=== PATIENT | male | born 1930 | race Caucasian/White ===

== ENCOUNTER 2017-11-15 09:41 | Inpatient (IN) | payer OTHER, MEDICARE ==
[~2017-11-15] VITALS: Ht 177.8 cm; Wt 75.8 kg
[~2017-11-15 09:41] MED LIST: ADVAIR 250-501 EACH INH; ADVAIR DISKUS 21 DSK INH; ALBUTEROL0.09 MG/A1 INH; ALENDRONATE SOD70 M2 PO; ALPRAZOLAM OD0.25 MG PO; ALPRAZOLAM0.25 M1 PO; ALPRAZOLAM0.5 MG PO; ANTIVERT 12.512.5 MG PO; ASPIRIN EC81 M1 PO; CIPRO500 M1 PO; COZAAR25 M1 PO; DILTIAZEM ER120 M2 PO; FLOMAX0.4 M1 PO; FLOVENT HFA12 G1 INH; GUAIFENESIN ER600 MG PO; LANTUS SOL100 UNIT/1 SC; LIPITOR20 M2 PO; METOPROLOL SUCC25 M1 PO; OMEPRAZOLE40 M1 PO; PREDNISONE5 M1 PO; PRESERVISION A1 EAC1 PO; SIMVASTATIN20 M2 PO; SIMVASTATIN20 MG PO; SPIRIVA18 MCG INH; TACLONEX OINTME60 GM TOP; TRANS SCOPE PAT1 PAT TOP
--- NOTE | 2017-11-15 09:44 | ED GENERAL ADULT ---
History of Present Illness General Chief Complaint: General Adult Stated Complaint: BIBA WEAKNESS,CONGESTION X 2 MONTHS Source: patient, old records, EMS Exam Limitations: no limitations Vital Signs & Intake/Output Vital Signs & Intake/Output Vital Signs Date Time Temp Pulse Resp B/P B/P Pulse O2 O2 Flow FiO2 Mean Ox Delivery Rate 11/15 1158 98.0 62 20 100/50 95 Room Air 11/15 1105 94 11/15 1054 94 Room Air 11/15 1015 94 11/15 0947 98.4 55 20 114/54 94 Room Air Allergies Coded Allergies: NO KNOWN ALLERGIES (11/13/13) Reconcile Medications Aspirin (Ecotrin*) 81 MG TABLET.DR 1 TAB PO DAILY HEART HEALTH (Reported) Atorvastatin Calcium (Lipitor) 20 MG TABLET 1 TAB PO DAILY heart Calcipotriene/Betamethasone (Taclonex Ointment) 60 GM OINT...G. 1 JANETTE TOP PSORIASIS (Reported) Diltiazem HCl (Cartia Xt) 120 MG CAP.ER.24H 1 CAP PO DAILY HEART (Reported) Fluticasone Propionate (Flovent Hfa) 12 GM AER.W.ADAP 2 PUF INH BID LUNG Fluticasone/Salmeterol (Advair 250-50 Diskus) 1 EACH BLST.W.DEV 1 PUF INH BID BREATHING PROBLEMS (Reported) Insulin Glargine,Hum.rec.anlog (Lantus Solostar) 100 UNIT/ML (3 ML) INSULN.PEN 20 UNIT SC QPM DIABETES (Reported) Losartan Potassium (Cozaar) 25 MG TABLET 1 TAB PO DAILY heart Meclizine HCl 12.5 MG TABLET 2 TAB PO Q8P PRN DIZZINESS (Reported) Metformin HCl 500 MG TABLET 1 TAB PO DAILY DIABETES (Reported) Metoprolol Succinate 25 MG TAB 1 TAB PO DAILY BP (Reported) Omeprazole 40 MG CAPSULE.DR 1 CAP PO DAILY GI (Reported) Simvastatin (Simvastatin*) 20 MG TABLET 1 TAB PO QPM CHOLESTEROL (Reported) Tamsulosin HCl (Flomax) 0.4 MG CAP.ER.24H 1 CAP PO QPM URINARY (Reported) Tiotropium [place] (Spiriva) 18 MCG CAP.W.DEV 1 CAP INH DAILY COPD (Reported) Vit C/E/Zn/Coppr/Lutein/Zeaxan (Preservision Areds 2 Softgel) 250-200-40 CAPSULE 1 CAP PO BID EYE (Reported) Triage Nurses Notes Reviewed? yes Onset: Gradual Duration: week(s): (2) Timing: recent history Injury Environment: home Severity: moderate, severe No Modifying Factors: none Associated Symptoms: cough, SOB, CLEAR SPUTUM HPI: This is an 86-year-old male presents to the ER for chief complaints of shortness of breath and cough for the past 2 weeks. He states 2 weeks ago he went to an urgent care and was pronounced urines. He has been using his inhaler at home without relief. Patient denies any high fever or chills. Denies any chest pain. He states he's been feeling weak secondary to the cough and shortness of breath. His sputum production is clear to white. No history of congestive heart failure. Past History Travel History Traveled to [place] past 21 day No Medical History Any Pertinent Medical History? see below for history Neurological: dizziness, vertigo EENT: cataracts, hearing loss, macular degeneration, sinusitis Cardiovascular: CAD, hypertension, hyperlipidemia, CARDIAC BYPASS Respiratory: bronchitis, COPD, PULMONARY NODULES Gastrointestinal: GERD Hepatic: NONE Renal: benign prost hyperplasia Musculoskeletal: POLYMYALGIA RHUEMATICA Psychiatric: anxiety Endocrine: diabetes Blood Disorders: NONE Cancer(s): NONE CHEMICAL DEPENDENCY NURSE/Reproductive: NONE History of MRSA: No History of VRE: No History of CDIFF: No Surgical History Surgical History: CABG, cholecystectomy, INGUINAL HERNIA REPAIR R LUNG MASS REMOVED-NONCA Psychosocial History Who do you live with Spouse Services at Home Home Health Aide, Nursing What is your primary language Belarusian Family History Family History, If Any: MOTHER (pancreatic cancer). SISTER (stomach cancer). FATHER (heart disease). Hx Contributory? No Review of Systems Review of Systems Constitutional: Denies: chills, fever. EENTM: Reports: no symptoms. Respiratory: Reports: cough, short of breath, sputum production (WHITE). Cardiovascular: Denies: chest pain, palpitations, peripheral edema. GI: Denies: abdominal pain. Genitourinary: Reports: no symptoms. Musculoskeletal: Reports: no symptoms. Skin: Reports: no symptoms. Neurological/Psychological: Reports: no symptoms. Hematologic/Endocrine: Denies: bruising, bleeding, polyuria, polydipsia. Immunologic/Allergic: Denies: splenectomy. All Other Systems: Reviewed and Negative Physical Exam Physical Exam General Appearance: well developed/nourished, alert, awake, anxious Head: atraumatic, normal appearance Eyes: Bilateral: normal appearance, PERRL. Ears, Nose, Throat: normal pharynx, hearing grossly normal Neck: normal inspection, supple, full range of motion Respiratory: decreased breath sounds, accessory muscle use, rhonchi, wheezing, respiratory distress Cardiovascular: regular rate/rhythm Peripheral Pulses: 2+ radial (R), 2+ radial (L) Gastrointestinal: normal bowel sounds, soft, non-tender Extremities: normal inspection, normal capillary refill, normal range of motion, no edema Neurologic/Psych: no motor/sensory deficits, awake, alert, oriented x 3 Skin: intact, normal color, warm/dry Core Measures ACS in differential dx? No CVA/TIA Diagnosis: No Sepsis Present: No Sepsis Focused Exam Completed? No Progress Differential Diagnoses I considered the following diagnoses in my evaluation of the patient: [ BRONCHITIS, PNEUMONIA, INFLUENZA, ASTHMA, CHF] Plan of Care: Orders Procedure Date/time Status Heart Healthy Diet 11/15 D Active ED Holding Orders 11/15 1306 Active Admit to inpatient 11/15 1306 Active Vital Signs 11/15 1306 Active Code Status 11/15 1306 Active LOWER RESPIRATORY CULTURE 11/15 0953 Complete RT ED ORDERS 11/15 0952 Active RAPID VIRAL INFLUENZA A 11/15 0952 Complete BLOOD CULTURE 11/15 0952 Active TROPONIN LEVEL 11/15 0952 Complete COMPREHENSIVE METABOLIC PANEL 11/15 0952 Complete CBC WITHOUT DIFFERENTIAL 11/15 0952 Complete B-TYPE NATRIURETIC PEP (BNP) 11/15 0952 Complete EKG 11/15 0944 Active Current Medications Sig/Chacho Start time Last Medication Dose Stop Time Status Admin Magnesium Sulfate 1 GM Q2H 11/15 1115 AC 11/15 (Mag Sulfate in D5) 11/15 1514 1215 Dextrose/Water 100 ML (D5W) Laboratory Tests 11/15/17 1045: Anion Gap 12, Estimated GFR > 60, BUN/Creatinine Ratio 21.3, Glucose 170 H, Calcium 8.6, Total Bilirubin 2.7 H, AST 18, ALT 39, Alkaline Phosphatase 106, Troponin I < 0.01, Bzz-C-Rovamuzphsi Pept 1030 H, Total Protein 5.8 L, Albumin 3.5, Globulin 2.3, Albumin/Globulin Ratio 1.5, CBC w Diff NO MAN DIFF REQ, RBC 4.49 L, MCV 83.2, MCH 27.7, RDW 15.5 H, MPV 9.1, Gran % 79.6 H, Lymphocytes % 12.4 L, Monocytes % 7.0, Eosinophils % 0.7, Basophils % 0.3, Absolute Granulocytes 10.5 H, Absolute Lymphocytes 1.6, Absolute Monocytes 0.9 H, Absolute Eosinophils 0.1, Absolute Basophils 0, PUBS MCHC 33.4 Microbiology 11/15 1045 BLOOD: Blood Culture - RECD 11/15 1035 BLOOD: Blood Culture - RECD 11/15 1015 LOWER RESP: Respiratory Culture - COMP 11/15 1015 LOWER RESP: Gram Stain - COMP 11/15 1012 NASOPHARYN: Influenza Virus A & B Rapid Smear - COMP Diagnostic Imaging: Viewed by Me: Radiology Read. Discussed w/RAD: Radiology Read. Initial ED EKG: NSR (56 BPM) Departure Departure Time of Disposition: 1307 Disposition: STILL A PATIENT Condition: Stable Clinical Impression Primary Impression: COPD (chronic obstructive pulmonary disease) Referrals: Epi CARRANZA,Carl Hudson (PCP/Family) Departure Forms: Customer Survey General Discharge Information Admission Note Spoke With: Magdiel CARRANZA,Cassi Crawford Critical Care Note Critical Care Note Critical Care Time: non-applicable
[2017-11-15] MEDS ORDERED: METFORMIN HCL500 M3 PO (09:53)
[2017-11-15] MEDS ORDERED: MECLIZINE HCL12.5 M1 PO (09:54)
[2017-11-15] MEDS ORDERED: CARTIA XT120 M1 PO (09:55)
--- NOTE | 2017-11-15 10:41 | RADIOLOGY REPORT ---
EXAMINATION: XR PORTABLE CHEST CLINICAL INFORMATION: Cough, shortness of breath COMPARISON: 02/15/2016 TECHNIQUE: Portable frontal view of the chest was obtained. FINDINGS: Lung volumes are symmetric. No focal consolidation is seen. Mild curvilinear bibasilar atelectasis/scarring is noted. Changes of upper lobe predominant emphysema are better demonstrated on prior CT. No evidence of pneumothorax, significant pleural effusion, or overt pulmonary edema. Cardiac size is within normal limits. Calcification is present at the aortic arch. Sternal wires are present. No acute osseous findings are seen. IMPRESSION: No acute findings identified.
[2017-11-15 11:14] LABS: ABSOLUTE BASOPHIL COUNT 0 /CUMM (0.0-0.2); ABSOLUTE EOSINOPHIL COUNT 0.1 /CUMM (0.0-0.7); ABSOLUTE GRANULOCYTE CT 10.5 /CUMM (1.4-6.5); ABSOLUTE LYMPH COUNT 1.6 /CUMM (1.2-3.4); ABSOLUTE MONOCYTE COUNT 0.9 /CUMM (0.10-0.60); BASOPHIL % 0.3 % (0.0-2.0); EOSINOPHIL % 0.7 % (0-5); GRANULOCYTE % 79.6 % (42.2-75.2); HEMATOCRIT 37.3 % (42-52); MEAN CORPUSCULAR HGB 27.7 PG (27.0-31.0); MEAN CORPUSCULAR HGB CONC 33.4 G/DL (33.0-37.0); MEAN CORPUSCULAR VOLUME 83.2 FL (80.0-94.0); MEAN PLATELET VOLUME 9.1 FL (7.4-10.4); PLATELET COUNT 146 /CUMM (130-400); RBC DISTRIBUTION WIDTH 15.5 % (11.5-14.5); RED BLOOD CELL CT 4.49 /CUMM (4.70-6.10); WHITE BLOOD CELL COUNT 13.2 /CUMM (4.8-10.8)
--- NOTE | 2017-11-15 13:20 | History & Physical ---
Eliazar CARRANZA,[facility] 11/15/17 1320: General Information and HPI MD Statement: I have seen and personally examined ANAY VILLALOBOS and documented this H&P. The patient is a 86 year old M who presented with a patient stated chief complaint of [bronchitis]. Source of Information: patient Exam Limitations: no limitations History of Present Illness: 86-year-old male past medical history of vertigo, cataracts, hearing loss, macular degeneration, sinusitis, CAD s/p CABG, hypertension, hyperlipidemia, bronchitis, COPD, gland nodules, GERD, BPH, anxiety, diabetes, polymyalgia rheumatica presentign for shortness of breath and cough since oct 25. States that he was seen by at a walk in clinic on nov 01 and was prescribed a prednisone taper that did not improve his symptoms. He continued to have productive cough with clear pleghm, sob, and worsening wheezing. He tried to get an appointment with the care facility pcp who cancelled the patients appointment and told him to take cough medicine which also did not improve his symptoms. He was supposed to be seen by Dr. Rich today, but came to the ED instead. Allergies/Medications Allergies: Coded Allergies: NO KNOWN ALLERGIES (11/13/13) Home Med list Aspirin (Ecotrin*) 81 MG TABLET.DR 1 TAB PO DAILY HEART HEALTH (Reported) Atorvastatin Calcium (Lipitor) 20 MG TABLET 1 TAB PO DAILY heart Calcipotriene/Betamethasone (Taclonex Ointment) 60 GM OINT...G. 1 JANETTE TOP PSORIASIS (Reported) Diltiazem HCl (Cartia Xt) 120 MG CAP.ER.24H 1 CAP PO DAILY HEART (Reported) Fluticasone Propionate (Flovent Hfa) 12 GM AER.W.ADAP 2 PUF INH BID LUNG Fluticasone/Salmeterol (Advair 250-50 Diskus) 1 EACH BLST.W.DEV 1 PUF INH BID BREATHING PROBLEMS (Reported) Insulin Glargine,Hum.rec.anlog (Lantus Solostar) 100 UNIT/ML (3 ML) INSULN.PEN 20 UNIT SC QPM DIABETES (Reported) Losartan Potassium (Cozaar) 25 MG TABLET 1 TAB PO DAILY heart Meclizine HCl 12.5 MG TABLET 2 TAB PO Q8P PRN DIZZINESS (Reported) Metformin HCl 500 MG TABLET 1 TAB PO DAILY DIABETES (Reported) Metoprolol Succinate 25 MG TAB 1 TAB PO DAILY BP (Reported) Omeprazole 40 MG CAPSULE.DR 1 CAP PO DAILY GI (Reported) Simvastatin (Simvastatin*) 20 MG TABLET 1 TAB PO QPM CHOLESTEROL (Reported) Tamsulosin HCl (Flomax) 0.4 MG CAP.ER.24H 1 CAP PO QPM URINARY (Reported) Tiotropium [place] (Spiriva) 18 MCG CAP.W.DEV 1 CAP INH DAILY COPD (Reported) Vit C/E/Zn/Coppr/Lutein/Zeaxan (Preservision Areds 2 Softgel) 250-200-40 CAPSULE 1 CAP PO BID EYE (Reported) Past History Travel History Traveled to [place] past 21 day No Medical History Neurological: dizziness, vertigo EENT: cataracts, hearing loss, macular degeneration, sinusitis Cardiovascular: CAD, hypertension, hyperlipidemia, CARDIAC BYPASS Respiratory: bronchitis, COPD, PULMONARY NODULES Gastrointestinal: GERD Hepatic: NONE Renal: benign prost hyperplasia Musculoskeletal: POLYMYALGIA RHUEMATICA Psychiatric: anxiety Endocrine: diabetes Blood Disorders: NONE Cancer(s): NONE 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 SISTER (stomach cancer). FATHER (heart disease). Psychosocial History Services at Home: Home Health Aide, Nursing ETOH Use: denies use Illicit Drug Use: denies illicit drug use Review of Systems Review of Systems Constitutional: Reports: see HPI. Cardiovascular: Reports: no symptoms. Respiratory: Reports: cough, short of breath, sputum production, wheezing. GI: Reports: no symptoms. Genitourinary: Reports: no symptoms. Exam & Diagnostic Data Last 24 Hrs of Vital Signs/I&O Vital Signs Date Time Temp Pulse Resp B/P B/P Pulse O2 O2 Flow FiO2 Mean Ox Delivery Rate 11/15 2204 97.2 60 20 122/54 94 Room Air 11/15 2151 128/80 11/15 2150 Room Air 11/15 2120 94 Room Air 11/15 2022 97.6 89 18 129/89 96 Room Air 11/15 2021 99 20 129/89 11/15 1944 98.0 60 16 120/58 96 Nasal 1.0L Cannula 01/10 1944 98.0 60 16 120/58 96 Nasal 1.0L Cannula 11/15 1630 97.6 61 18 141/63 97 Nasal 2.0L Cannula 11/15 1628 97.6 61 17 141/63 97 Nasal 2.0L Cannula 11/15 1412 97.5 60 20 122/60 96 Nasal 2.0L Cannula 11/15 1158 98.0 62 20 100/50 95 Room Air 11/15 1105 94 11/15 1054 94 Room Air 11/15 1015 94 11/15 0947 98.4 55 20 114/54 94 Room Air Intake & Output 11/15 1600 11/15 0800 11/15 0000 Intake Total Output Total Balance Patient 165 lb Weight Weight Reported by Patient Measurement Method Physical Exam General Appearance Alert, Oriented X3, Cooperative, Mild Distress Skin Temp/Moisture Exam: Warm/Dry HEENT no JVD Cardiovascular Regular Rate, Normal S1, Normal S2 Lungs diffuse wheezing and rhonchi. wheezing can be heard across room. Abdomen Normal Bowel Sounds, Soft, No Tenderness Extremities no pedal edema Assessment/Plan Assessment: 86-year-old male past medical history of vertigo, cataracts, hearing loss, macular degeneration, sinusitis, CAD s/p CABG, hypertension, hyperlipidemia, bronchitis, COPD, gland nodules, GERD, BPH, anxiety, diabetes, polymyalgia rheumatica presentign for shortness of breath and cough since oct 25 presenting for COPD exascerbation #SOB most likely due to COPD Initial vital signs: T 98.0, heart rate 62, respiratory rate 20, BP 100/50, 95 room air WBC 13.2 trop <.01 ProBNP 1030 Negative flu Echo 2016: LVEF 45-50%, anteroseptal wall hypokinesis Chest x-ray negative -trc, nebs, IV solumedrol, symbicort, azithromycin, sputum culture, mucinex, -f/u pulm recommendations #? hx of afib EKG showed afib however exam revealed RRR Pt states he saw sole cutter y-day (Dr. Des Veloz) and said his ekg was fine -contact cardiology regarding patients health -cont dilt if instructed by cards #elevated tbili T bili 2.7 normal lfts -cont to monitor #diabetes -novolog sliding scale #hx of cad -cont aspirin, atorvastatin, metoprolol #htn -losaratan #gerd -omeprazole #bph -flomax #vertigo -cont meclizine #dvt prophylaxis lovenox #full code As Ranked By This Provider Problem List: 1. COPD (chronic obstructive pulmonary disease) Core Measures/Misc (07/23) Acute Coronary Syndrome ACS Diagnosis: No Congestive Heart Failure Congestive Heart Failure Diagnosis No Cerebrovascular Accident CVA/TIA Diagnosis: No VTE (View Protocol) VTE Risk Factors Acute Medical Illness No Mechanical VTE Prophylaxis d/t Other No VTE Pharm Prophylaxis d/t NA PharmProphylax ordered Sepsis (View protocol) Sepsis Present: No Susy Sylvester 11/15/17 1515: Attending MD Review Statement Attending Statement Attending MD Statement: examined this patient, discuss w/resident/PA/SAWYER CORK SLABS, agreed w/resident/PA/SAWYER CORK SLABS, discussed with family, reviewed EMR data (avail), discussed with nursing, discussed with case mgmt, reviewed images, amended to note Attending Assessment/Plan: 86 o/m with pmh of COPD/CAD s/p CABG in past/severe emphysema/SVT/ Polymyalgia rhematica/DM/BPH/HTN came with shortness of breath on rest and improved with steorids in ER. Chest xray with emphsematos changes and atelectasis. Patient is on oxygen supplementaton. Patient is being admitted for COPD exacebration. Patient is on iv steorids, bronchodilators, antibicotics, consult pulmoanry Dr Rich. Check serial cardiac enzymes. RISS and titrate insulin as needed. gi/dvt prophyalxis. Lluvia Mares 11/15/17 1614: Resident Review Statement Resident Statement: examined this patient, discussed with campus interviews intern, agreed with campus interviews intern, reviewed EMR data (avail), discussed with nursing, reviewed images Other Findings: is an 86 yo man a resident of [facility] with PMHx. of COPD not on home O2, hypertension, BPH, pulmonary nodules, hyperlipidemia, coronary artery disease with bypass surgery 20 years ago who presented to the emergency department with a c/o SOB. Pateint had bronchitis about 2 weeks ago, he went to a walk in clinic and treated with antibiotic and a taper dose of prednisone, his symptoms of productive of clear phlegm, SOB on exertion and wheezing never improved, he was supposed to be seen by his community relations representative ( today) BUT his visiting nurse told him that he needs to go to ED for more evaluation. At ED patient was initially at RA with O2 95%, then on 2L O2 with a sat of 96%, other vitals is stable On examiantion: he looks in mild distress, Lung: whidspread rhonchi and expiratory wheezing, Heart: regular rhythm, no murmur, pulse intact, no edema Labs: CXR:no acute findings identified. 1. COPD exacerbation: TRC. Symbicort and ipratropium. Zithromax for its anti- inflammatory properties. Sputum culture. Mucinex. 2. Hx. of SVT, EKG at ED showed A.fib, on examination he has regular pulse: will check another EKG at am, if it showed A.fib will place a cardiology consult with his sole cutter Dr. Veloz (His CHADsVAC is >2) 3. Fatigue:related most likely to the current medical illness 4. Polymyalgia rheumatica per patient: 5. Diabetes by history: Will continue insulin and hold PO hypoglycemic medication Continue other medications. Full code Heart healthy diet. Lovenox for DVT prophylaxis.
[2017-11-15 16:30] VITALS: BP 141/63
--- NOTE | 2017-11-15 19:22 | Cons- Pulmonary ---
General Information and HPI Consulting Request Date of Consult: 11/15/17 Requested By: ED History of Present Illness: is an 86 yo man a resident of [facility] with PMHx. of COPD not on home O2, hypertension, BPH, pulmonary nodules, hyperlipidemia, coronary artery disease with bypass surgery 20 years ago who presented to the emergency department with a c/o SOB. Pateint had bronchitis about 2 weeks ago, he went to a walk in clinic and treated with antibiotic and a taper dose of prednisone, his symptoms of productive of clear phlegm, SOB on exertion and wheezing never improved, he was supposed to be seen by me today, BUT his visiting nurse told him that he needs to go to ED for more evaluation. At ED patient was initially at RA with O2 95%, then on 2L O2 with a sat of 96%, other vitals is stable He has very severe copd with emphysema with low FEV1 he has PMR and hence immunosuppresed He does use a humidifier Allergies/Medications Allergies: Coded Allergies: NO KNOWN ALLERGIES (11/13/13) Home Med List: Aspirin (Ecotrin*) 81 MG TABLET.DR 1 TAB PO DAILY HEART HEALTH (Reported) Atorvastatin Calcium (Lipitor) 20 MG TABLET 1 TAB PO DAILY heart Calcipotriene/Betamethasone (Taclonex Ointment) 60 GM OINT...G. 1 JANETTE TOP PSORIASIS (Reported) Diltiazem HCl (Cartia Xt) 120 MG CAP.ER.24H 1 CAP PO DAILY HEART (Reported) Fluticasone Propionate (Flovent Hfa) 12 GM AER.W.ADAP 2 PUF INH BID LUNG Fluticasone/Salmeterol (Advair 250-50 Diskus) 1 EACH BLST.W.DEV 1 PUF INH BID BREATHING PROBLEMS (Reported) Insulin Glargine,Hum.rec.anlog (Lantus Solostar) 100 UNIT/ML (3 ML) INSULN.PEN 20 UNIT SC QPM DIABETES (Reported) Losartan Potassium (Cozaar) 25 MG TABLET 1 TAB PO DAILY heart Meclizine HCl 12.5 MG TABLET 2 TAB PO Q8P PRN DIZZINESS (Reported) Metformin HCl 500 MG TABLET 1 TAB PO DAILY DIABETES (Reported) Metoprolol Succinate 25 MG TAB 1 TAB PO DAILY BP (Reported) Omeprazole 40 MG CAPSULE.DR 1 CAP PO DAILY GI (Reported) Simvastatin (Simvastatin*) 20 MG TABLET 1 TAB PO QPM CHOLESTEROL (Reported) Tamsulosin HCl (Flomax) 0.4 MG CAP.ER.24H 1 CAP PO QPM URINARY (Reported) Tiotropium [place] (Spiriva) 18 MCG CAP.W.DEV 1 CAP INH DAILY COPD (Reported) Vit C/E/Zn/Coppr/Lutein/Zeaxan (Preservision Areds 2 Softgel) 250-200-40 CAPSULE 1 CAP PO BID EYE (Reported) Review of Systems Review of Systems Constitutional: Denies: see HPI. 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 SISTER (stomach cancer). FATHER (heart disease). Psychosocial History Services at Home: Home Health Aide, Nursing ETOH Use: denies use Illicit Drug Use: denies illicit drug use Exam & Diagnostic Data Last 24 Hrs of Vital Signs/I&O Vital Signs Date Time Temp Pulse Resp B/P B/P Pulse O2 O2 Flow FiO2 Mean Ox Delivery Rate 11/15 1630 97.6 61 18 141/63 97 Nasal 2.0L Cannula 11/15 1628 97.6 61 17 141/63 97 Nasal 2.0L Cannula 11/15 1412 97.5 60 20 122/60 96 Nasal 2.0L Cannula 11/15 1158 98.0 62 20 100/50 95 Room Air 11/15 1105 94 11/15 1054 94 Room Air 11/15 1015 94 11/15 0947 98.4 55 20 114/54 94 Room Air Intake & Output 11/15 1600 11/15 0800 11/15 0000 Intake Total Output Total Balance Patient 165 lb Weight Weight Reported by Patient Measurement Method Last 48 Hrs of Labs/Jc: Laboratory Tests 11/15/17 1045: Anion Gap 12, Estimated GFR > 60, BUN/Creatinine Ratio 21.3, Glucose 170 H, Calcium 8.6, Total Bilirubin 2.7 H, AST 18, ALT 39, Alkaline Phosphatase 106, Troponin I < 0.01, Mlg-F-Tpjawbhsdjn Pept 1030 H, Total Protein 5.8 L, Albumin 3.5, Globulin 2.3, Albumin/Globulin Ratio 1.5, CBC w Diff NO MAN DIFF REQ, RBC 4.49 L, MCV 83.2, MCH 27.7, RDW 15.5 H, MPV 9.1, Gran % 79.6 H, Lymphocytes % 12.4 L, Monocytes % 7.0, Eosinophils % 0.7, Basophils % 0.3, Absolute Granulocytes 10.5 H, Absolute Lymphocytes 1.6, Absolute Monocytes 0.9 H, Absolute Eosinophils 0.1, Absolute Basophils 0, PUBS MCHC 33.4 11/15/17 0600: CBC w Diff Cancelled, WBC Cancelled, RBC Cancelled, Hgb Cancelled, Hct Cancelled , MCV Cancelled, MCH Cancelled, RDW Cancelled, Plt Count Cancelled, MPV Cancelled, PUBS MCHC Cancelled Microbiology 11/15 1015 LOWER RESP: Respiratory Culture - COMP 11/15 1015 LOWER RESP: Gram Stain - COMP 11/15 1012 NASOPHARYN: Influenza Virus A & B Rapid Smear - COMP Cxr nil acute Assessment/Plan Impression/Plan: On examiantion: he looks in mild distress, Lung: whidspread rhonchi and expiratory wheezing, Heart: regular rhythm, no murmur, pulse intact, no edema IMPRESSION This is a gentleman with history of more than [id number] smoking quit many years ago, very severe emphysema noted in his previous CAT scan, mild bronchitis on and off with no previous intubation, coronary artery disease with previous bypass surgery, polymyalgia rheumatica on chronic prednisone therapy hence immunosuppressed, diabetes, hyperlipidemia, history of BPH, previous history of lung nodules, now comes with * Very severe emphysema radiologically with mod performance status with acute copd exacerbation despite out pt measures, with mild hypoxia and productive sputum * Previous history of lung nodule probably rounded atx and ct improved since 2013 and hence unlikely malignancy, no ct needed for now due to his very advanced emphysema * Polymyalgia rheumatica on chronic steroids. He says his pain is resolved since she's been on steroids. Hence patient is immunosuppressed * Stable Coronary artery disease in the past status post CABG, irregular rhythm with previous supraventricular tachycardia * Diabetes, BPH, HTN REC IV steroids 60 bid and sub change to 60 qd Nebs atc Rpt sputum culture IV ceftriaxone for now and dc azithro cont to monitor his rhythm Avoid high dose betablockers Will follow closely Consult Acknowledgment - Thank you for your consult request.
[2017-11-15 19:45] VITALS: BP 120/58
[2017-11-15 22:05] VITALS: BP 122/54
[2017-11-16 07:17] VITALS: BP 118/52
--- NOTE | 2017-11-16 10:49 | PN- Pulmonary ---
Subjective HPI/Critical Care Issues: Doing well Stable No new issues Objective Current Medications: Current Medications Sig/Chacho Start time Last Medication Dose Route Stop Time Status Admin Acetaminophen 650 MG Q6P PRN 11/15 1445 AC PO Acetaminophen 1,000 MG Q6P PRN 11/15 1445 AC IV Albuterol Sulfate 3 ML TID 11/15 2200 AC 11/16 INH 0822 Albuterol Sulfate 3 ML ONCE ONE 11/15 1100 DC 11/15 INH 11/15 1101 1105 Aspirin Buffered 81 MG DAILY 11/16 1000 AC 11/16 PO 0911 Atorvastatin Calcium 20 MG 1700 11/16 1700 AC PO Azithromycin 500 MG DAILY 11/16 1000 CAN Sodium Chloride 250 ML IV Azithromycin 500 MG ONCE ONE 11/15 1300 DC 11/15 PO 11/15 1301 1305 Budesonide/ 2 PUF BID 11/15 2200 AC 11/16 Formoterol Fumarate INH 0912 Budesonide/ 2 PUF BID 11/15 2200 CAN Formoterol Fumarate INH Diltiazem HCl 120 MG DAILY 11/15 1656 AC 11/16 PO 0911 Enoxaparin Sodium 40 MG DAILY 11/16 1000 AC 11/16 SC 0911 Guaifenesin 600 MG Q12 11/15 1815 AC 11/16 PO 0911 Insulin Aspart 0 TIDAC 11/15 1700 AC 11/16 SC 0910 Insulin Detemir 12 UNITS DAILY 11/16 1000 CAN SC Ipratropium [place] 2.5 ML DAILY 11/16 1000 CAN INH Losartan Potassium 25 MG DAILY 11/16 1000 AC 11/16 PO 0911 Magnesium Sulfate 1 GM Q2H 11/15 1115 DC 11/15 Dextrose/Water 100 ML IV 11/15 1514 1215 Methylprednisolone 60 MG Q12 11/16 2199 AC IV Methylprednisolone 20 MG ONCE ONE 11/16 0945 DC IV 11/16 0946 Methylprednisolone 40 MG Q12 11/15 2200 DC 11/16 IV 0910 Methylprednisolone 0 .STK-MED ONE 11/15 1055 DC .ROUTE Metoprolol Succinate 25 MG DAILY 11/15 1655 AC 11/16 PO 0911 Omeprazole 40 MG DAILY AC 11/16 0700 AC 11/16 PO 0530 Tamsulosin HCl 0.4 MG QPM 11/15 2200 AC 11/15 PO 2152 Tiotropium [place] 1 PUF DAILY 11/16 1000 CAN INH Tiotropium [place] 1 PUF DAILY 11/15 2215 AC 11/16 INH 0912 Vital Signs & I&O Last 24 Hrs of Vitals and I&O: Vital Signs Date Time Temp Pulse Resp B/P B/P Pulse O2 O2 Flow FiO2 Mean Ox Delivery Rate 11/16 0911 78 128/80 11/16 0826 92 Room Air 11/16 0800 94 Room Air 11/16 0717 97.8 60 20 118/52 91 11/15 2205 97.2 60 20 122/54 94 Room Air 11/15 2152 128/80 11/15 2151 Room Air 11/15 2121 94 Room Air 11/15 2022 97.6 89 18 129/89 96 Room Air 11/15 2021 99 20 129/89 11/15 1945 98.0 60 16 120/58 96 Nasal 1.0L Cannula 11/15 1944 98.0 60 16 120/58 96 Nasal 1.0L Cannula 11/15 1630 97.6 61 18 141/63 97 Nasal 2.0L Cannula 11/15 1628 97.6 61 17 141/63 97 Nasal 2.0L Cannula 11/15 1412 97.5 60 20 122/60 96 Nasal 2.0L Cannula 11/15 1158 98.0 62 20 100/50 95 Room Air 11/15 1105 94 11/15 1054 94 Room Air Intake & Output 11/16 1600 11/16 0800 11/16 0000 Intake Total 240 120 Output Total 375 Balance -135 120 Intake, Oral 240 120 Output, Urine 375 Patient 167 lb Weight Weight Bed scale Measurement Method Impression/Plan Impression/Plan Impression/Plan: On examiantion: he looks in mild distress, Lung: whidspread rhonchi and expiratory wheezing, Heart: regular rhythm, no murmur, pulse intact, no edema IMPRESSION This is a gentleman with history of more than [id number] smoking quit many years ago, very severe emphysema noted in his previous CAT scan, mild bronchitis on and off with no previous intubation, coronary artery disease with previous bypass surgery, polymyalgia rheumatica on chronic prednisone therapy hence immunosuppressed, diabetes, hyperlipidemia, history of BPH, previous history of lung nodules, now comes with * Very severe emphysema radiologically with mod performance status with acute copd exacerbation despite out pt measures, with mild hypoxia and productive sputum * Previous history of lung nodule probably rounded atx and ct improved since 2013 and hence unlikely malignancy, no ct needed for now due to his very advanced emphysema * Polymyalgia rheumatica on chronic steroids. He says his pain is resolved since she's been on steroids. Hence patient is immunosuppressed * Stable Coronary artery disease in the past status post CABG, irregular rhythm with previous supraventricular tachycardia * Diabetes, BPH, HTN REC Much improved Po prednisone taper in few days Nebs atc Change to po abx in am Avoid high dose betablockers Will follow closely
--- NOTE | 2017-11-16 11:15 | PN- Housestaff ---
Subjective Follow-up For: SOB/COPD exascerbation Subjective: States he is not doing too well. Was not able to sleep last night. Complains of congestion. States still SOB but also states he is always SOB. States his SOB is at baseline. Review of Systems Constitutional: Reports: see HPI (insomnia). Cardiovascular: Reports: no symptoms. Respiratory: Reports: see HPI (congestion), short of breath. Gastrointestinal: Reports: no symptoms. Genitourinary: Reports: no symptoms. Objective Last 24 Hrs of Vital Signs/I&O Vital Signs Date Time Temp Pulse Resp B/P B/P Pulse O2 O2 Flow FiO2 Mean Ox Delivery Rate 11/16 1339 96.5 58 19 114/50 94 Room Air 11/16 09 78 128/80 11/16 0826 92 Room Air 11/16 08 94 Room Air 11/16 0717 97.8 60 20 118/52 91 11/15 2204 97.2 60 20 122/54 94 Room Air 11/15 215 128/80 11/15 215 Room Air 11/15 2121 94 Room Air 11/15 2022 97.6 89 18 129/89 96 Room Air 11/15 2021 99 20 129/89 11/15 1944 98.0 60 16 120/58 96 Nasal 1.0L Cannula 11/15 1943 98.0 60 16 120/58 96 Nasal 1.0L Cannula Intake & Output 11/16 1600 11/16 0800 11/16 0000 Intake Total 940 240 120 Output Total 550 375 Balance 390 -135 120 Intake, IV 40 Intake, Oral 900 240 120 Number 0 Bowel Movements Output, Urine 550 375 Patient 167 lb Weight Weight Bed scale Measurement Method Physical Exam General Appearance: Alert, Oriented X3, Cooperative Skin Temp/Moisture Exam: Warm/Dry Cardiovascular: Regular Rate, Normal S1, Normal S2 Lungs: diffuse exp wheezing and rhonchi Abdomen: Normal Bowel Sounds, Soft, No Tenderness Extremities: no leg edema Current Medications: Current Medications Sig/Chacho Start time Last Medication Dose Route Stop Time Status Admin Acetaminophen 650 MG Q6P PRN 11/15 1445 AC PO Acetaminophen 1,000 MG Q6P PRN 11/15 1445 AC IV Albuterol Sulfate 3 ML TID 11/15 2200 AC 11/16 INH 1323 Aspirin Buffered 81 MG DAILY 11/16 1000 AC 11/16 PO 0911 Atorvastatin Calcium 20 MG 1700 11/16 1700 AC 11/16 PO 1608 Azithromycin 500 MG DAILY 11/16 1000 CAN Sodium Chloride 250 ML IV Budesonide/ 2 PUF BID 11/15 2200 AC 11/16 Formoterol Fumarate INH 0912 Budesonide/ 2 PUF BID 11/15 2200 CAN Formoterol Fumarate INH Ceftriaxone Sodium 1,000 MG DAILY 11/16 1500 AC 11/16 IV 1608 Diltiazem HCl 120 MG DAILY 11/15 1656 AC 11/16 PO 0911 Enoxaparin Sodium 40 MG DAILY 11/16 1000 AC 11/16 SC 0911 Guaifenesin 600 MG Q12 11/15 1815 AC 11/16 PO 0911 Insulin Aspart 0 TIDAC 11/15 1700 AC 11/16 SC 1724 Insulin Detemir 12 UNITS DAILY 11/16 1000 CAN SC Ipratropium [place] 2.5 ML DAILY 11/16 1000 CAN INH Losartan Potassium 25 MG DAILY 11/16 1000 AC 11/16 PO 0911 Methylprednisolone 60 MG Q12 11/16 2200 AC IV Methylprednisolone 20 MG ONCE ONE 11/16 0945 DC 11/16 IV 11/16 0946 1123 Methylprednisolone 40 MG Q12 11/15 2200 DC 11/16 IV 0910 Metoprolol Succinate 25 MG DAILY 11/15 1655 AC 11/16 PO 0911 Omeprazole 40 MG DAILY AC 11/16 0700 AC 11/16 PO 0530 Tamsulosin HCl 0.4 MG QPM 11/15 2200 AC 11/15 PO 2152 Tiotropium [place] 1 PUF DAILY 11/16 1000 CAN INH Tiotropium [place] 1 PUF DAILY 11/15 2215 AC 11/16 INH 0912 Last 24 Hrs of Lab/Jc Results Last 24 Hrs of Labs/Mics: Laboratory Tests 11/16/17 0622: Anion Gap 10, Estimated GFR > 60, BUN/Creatinine Ratio 28.6 H Assessment/Plan Assessment: 86-year-old male past medical history of vertigo, cataracts, hearing loss, macular degeneration, sinusitis, CAD s/p CABG, hypertension, hyperlipidemia, bronchitis, COPD, gland nodules, GERD, BPH, anxiety, diabetes, polymyalgia rheumatica presentign for shortness of breath and cough since oct 25 presenting for COPD exascerbation #SOB most likely due to COPD Initial vital signs: T 98.0, heart rate 62, respiratory rate 20, BP 100/50, 95 room air WBC 13.2 trop <.01 ProBNP 1030 Negative flu Echo 2016: LVEF 45-50%, anteroseptal wall hypokinesis Chest x-ray negative -trc, nebs, IV solumedrol, symbicort,sputum culture, mucinex, -dc azithromycin, start IV ceftriaxone -switch to po abx tomorrow -start prednisone taper tomorrow #? hx of afib EKG showed afib however exam revealed RRR Pt states he saw sample grader y-day (Dr. Des Veloz) and said his ekg was fine Cont diltiazem -contact cardiology regarding patients health #elevated tbili T bili 2.7 normal lfts -cont to monitor #diabetes -novolog sliding scale #hx of cad -cont aspirin, atorvastatin, metoprolol #htn -losaratan #gerd -omeprazole #bph -flomax #vertigo -cont meclizine #dvt prophylaxis lovenox #full code Problem List: 1. COPD (chronic obstructive pulmonary disease) Pain Ratin Pain Location: none Pain Goal: Pain 4 or less Pain Plan: pain pathway Tomorrow's Labs & Rationales: cbc bep
--- NOTE | 2017-11-16 13:12 | PN- Att Addend ---
Attending Addendum Attending Brief Note Patient seen and examined, overall feeling better. Not requiring any oxygen. Breathing has improved. Vital Signs Date Time Temp Pulse Resp B/P B/P Pulse O2 O2 Flow FiO2 Mean Ox Delivery Rate 11/16 0911 78 128/80 11/16 0826 92 Room Air 11/16 0800 94 Room Air 11/16 0717 97.8 60 20 118/52 91 11/15 2205 97.2 60 20 122/54 94 Room Air 11/15 2152 128/80 11/15 215 Room Air 11/15 2121 94 Room Air 11/15 2022 97.6 89 18 129/89 96 Room Air 11/15 2021 99 20 129/89 11/15 194 98.0 60 16 120/58 96 Nasal 1.0L Cannula 11/15 194 98.0 60 16 120/58 96 Nasal 1.0L Cannula 11/15 1630 97.6 61 18 141/63 97 Nasal 2.0L Cannula 11/15 1628 97.6 61 17 141/63 97 Nasal 2.0L Cannula 11/15 1412 97.5 60 20 122/60 96 Nasal 2.0L Cannula on exam; aox3, nad. cv; s1,s2, rrr resp; clear abd; soft, nt, bs+. ext; no edema. Laboratory Tests 11/16 621 Chemistry Sodium (137 - 145 mmol/L) 140 Potassium (3.5 - 5.1 mmol/L) 4.2 Chloride (98 - 107 mmol/L) 101 Carbon Dioxide (22 - 30 mmol/L) 28 Anion Gap (5 - 16) 10 BUN (9 - 20 mg/dL) 20 Creatinine (0.7 - 1.2 mg/dL) 0.7 Estimated GFR (>60 ml/min) > 60 BUN/Creatinine Ratio (7 - 25 %) 28.6 H A/P; 86 y/o M with pmh sig for vertigo, cataracts, hearing loss, macular degeneration, sinusitis, CAD s/p CABG, hypertension, hyperlipidemia, bronchitis , COPD, GERD, BPH, anxiety, diabetes, polymyalgia rheumatica admitted with acute COPD exacerbation/acute bronchitis. Continue IV steroids today and switch to oral tomorrow. Please clarify with pulmonology about ceftriaxone. Can likely switch to oral antibiotic in the morning. We'll get PT evaluation. Continue all other current medications. DVT px; Lovenox. Likely DC in am.
[2017-11-16 13:39] VITALS: BP 114/50
[2017-11-16 21:46] VITALS: BP 100/52
[2017-11-17 06:28] VITALS: BP 138/78
--- NOTE | 2017-11-17 08:49 | PN- Housestaff ---
Eliazar CARRANZA,[facility] 11/17/17 0849: Subjective Follow-up For: COPD Subjective: Patient feels riled up and confused. Unable to sleep. Thinks it is due to the steroids. States breathing is better today. Review of Systems Constitutional: Reports: see HPI (riled and confused). Cardiovascular: Reports: no symptoms. Respiratory: Reports: no symptoms. Gastrointestinal: Reports: no symptoms. Genitourinary: Reports: no symptoms. Musculoskeletal: Reports: no symptoms. Neurological/Psychological: Reports: see HPI (insomnia). Objective Last 24 Hrs of Vital Signs/I&O Vital Signs Date Time Temp Pulse Resp B/P B/P Pulse O2 O2 Flow FiO2 Mean Ox Delivery Rate 11/17 1230 97.9 62 22 122/60 11/17 1035 62 122/60 11/17 0910 94 Room Air 11/17 0628 97.9 84 22 138/78 94 Room Air Physical Exam General Appearance: Alert, Moderate Distress, Patient appears anxious and confused Skin Temp/Moisture Exam: Warm/Dry Cardiovascular: Regular Rate, Normal S1, Normal S2 Lungs: inspiratory crackles Abdomen: Normal Bowel Sounds, Soft, No Hepatospenomegaly Extremities: 2+ radial pulses Current Medications: Current Medications Sig/Chacho Start time Last Medication Dose Route Stop Time Status Admin Acetaminophen 650 MG Q6P PRN 11/15 1445 DCD PO Acetaminophen 1,000 MG Q6P PRN 11/15 1445 DCD IV Albuterol Sulfate 3 ML TID 11/15 2200 DCD 11/17 INH 0910 Aspirin Buffered 81 MG DAILY 11/16 1000 DCD 11/17 PO 1033 Atorvastatin Calcium 20 MG 1700 11/16 1700 DCD 11/16 PO 1608 Budesonide/ 2 PUF BID 11/15 2200 DCD 11/17 Formoterol Fumarate INH 1033 Ceftriaxone Sodium 1,000 MG DAILY 11/16 1500 DC 11/16 IV 1608 Cefuroxime Sodium 250 MG Q12 11/17 1000 DCD 11/17 PO 1035 Diltiazem HCl 120 MG DAILY 11/15 1656 DCD 11/17 PO 1035 Enoxaparin Sodium 40 MG DAILY 11/16 1000 DCD 11/17 SC 1033 Guaifenesin 600 MG Q12 11/15 1815 DCD 11/17 PO 1033 Insulin Aspart 0 TIDAC 11/15 1700 DCD 11/17 SC 1230 Losartan Potassium 25 MG DAILY 11/16 1000 DCD 11/17 PO 1035 Methylprednisolone 60 MG Q12 11/16 2200 DC 11/16 IV 2039 Metoprolol Succinate 25 MG DAILY 11/15 1655 DCD 11/17 PO 1037 Omeprazole 40 MG DAILY AC 11/16 0700 DCD 11/17 PO 0458 Prednisone 40 MG ONCE ONE 11/17 1115 DC 11/17 PO 11/17 1116 1225 Tamsulosin HCl 0.4 MG QPM 11/15 2200 DCD 11/15 PO 2152 Tiotropium [place] 1 PUF DAILY 11/15 2215 DCD 11/17 INH 1029 Last 24 Hrs of Lab/Jc Results Last 24 Hrs of Labs/Mics: Laboratory Tests 11/17/17 0747: Anion Gap 17 H, Estimated GFR > 60, BUN/Creatinine Ratio 26.3 H, CBC w Diff MAN DIFF ORDERED, RBC 4.66 L, MCV 84.4, MCH 27.7, RDW 15.7 H, MPV 9.1, Gran % 94.3 H, Lymphocytes % 2.6 L, Monocytes % 3.1, Eosinophils % 0, Basophils % 0, Absolute Granulocytes 20.6 H, Absolute Lymphocytes 0.6 L, Absolute Monocytes 0.7 H, Absolute Eosinophils 0, Absolute Basophils 0, Platelet Estimate ADEQUATE , Poikilocytosis 2+, Anisocytosis 1+, PUBS MCHC 32.8 L Assessment/Plan Assessment: 86-year-old male past medical history of vertigo, cataracts, hearing loss, macular degeneration, sinusitis, CAD s/p CABG, hypertension, hyperlipidemia, bronchitis, COPD, gland nodules, GERD, BPH, anxiety, diabetes, polymyalgia rheumatica presentign for shortness of breath and cough since oct 25 presenting for COPD exascerbation #SOB most likely due to COPD Initial vital signs: T 98.0, heart rate 62, respiratory rate 20, BP 100/50, 95 room air WBC 13.2 -> 21.9 trop <.01 ProBNP 1030 Negative flu Echo 2016: LVEF 45-50%, anteroseptal wall hypokinesis Chest x-ray negative -discharge today with po prednisone, and ceftin -cont copd meds for home #? hx of afib EKG showed afib however exam revealed RRR Pt states he saw robotic machine operator y-day (Dr. Des Veloz) and said his ekg was fine Cont diltiazem -contact cardiology regarding patients health #elevated tbili T bili 2.7 normal lfts -cont to monitor #diabetes -novolog sliding scale #hx of cad -cont aspirin, atorvastatin, metoprolol #htn -losaratan #gerd -omeprazole #bph -flomax #vertigo -cont meclizine #dvt prophylaxis lovenox #full code Problem List: 1. COPD (chronic obstructive pulmonary disease) Pain Ratin Pain Location: none Pain Goal: Pain 4 or less Pain Plan: pain pathway Tomorrow's Labs & Rationales: none Melony Gillespie MD 11/17/17 1203: Attending MD Review Statement Attending Statement Attending MD Statement: examined this patient, discuss w/resident/PA/[employer], agreed w/resident/PA/[employer], discussed with family, reviewed EMR data (avail), discussed with nursing, discussed with case mgmt, reviewed images, amended to note Attending Assessment/Plan: Patient seen and examined, was slightly confused this morning. Breathing has improved and patient not requiring any oxygen. Has been seen by pulmonology. Confusion improved later in the day today. Patient wants to go home and he is medically stable for discharge. I also spoke with his life who is in agreement with patient's discharge today. He will be discharged on prednisone taper. He will continue his Advair and Spiriva. He will follow per Dr. Rich as an outpatient.
[2017-11-17 09:33] LABS: ABSOLUTE BASOPHIL COUNT 0 /CUMM (0.0-0.2); ABSOLUTE EOSINOPHIL COUNT 0 /CUMM (0.0-0.7); ABSOLUTE GRANULOCYTE CT 20.6 /CUMM (1.4-6.5); BASOPHIL % 0 % (0.0-2.0); EOSINOPHIL % 0 % (0-5)
--- NOTE | 2017-11-17 09:37 | PN- Pulmonary ---
Subjective HPI/Critical Care Issues: Improving DId have sundowning last night Objective Current Medications: Current Medications Sig/Chacho Start time Last Medication Dose Route Stop Time Status Admin Acetaminophen 650 MG Q6P PRN 11/15 1445 AC PO Acetaminophen 1,000 MG Q6P PRN 11/15 1445 AC IV Albuterol Sulfate 3 ML TID 11/15 2200 AC 11/16 INH 1835 Aspirin Buffered 81 MG DAILY 11/16 1000 AC 11/16 PO 0911 Atorvastatin Calcium 20 MG 1700 11/16 1700 AC 11/16 PO 1608 Budesonide/ 2 PUF BID 11/15 2200 AC 11/16 Formoterol Fumarate INH 2040 Ceftriaxone Sodium 1,000 MG DAILY 11/16 1500 DC 11/16 IV 1608 Cefuroxime Sodium 250 MG Q12 11/17 1000 AC PO Diltiazem HCl 120 MG DAILY 11/15 1656 AC 11/16 PO 0911 Enoxaparin Sodium 40 MG DAILY 11/16 1000 AC 11/16 SC 0911 Guaifenesin 600 MG Q12 11/15 1815 AC 11/16 PO 2038 Insulin Aspart 0 TIDAC 11/15 1700 AC 11/16 SC 1724 Losartan Potassium 25 MG DAILY 11/16 1000 AC 11/16 PO 0911 Methylprednisolone 60 MG Q12 11/16 2200 AC 11/16 IV 2039 Methylprednisolone 20 MG ONCE ONE 11/16 0945 DC 11/16 IV 11/16 0946 1123 Metoprolol Succinate 25 MG DAILY 11/15 1655 AC 11/16 PO 0911 Omeprazole 40 MG DAILY AC 11/16 0700 AC 11/17 PO 0458 Tamsulosin HCl 0.4 MG QPM 11/15 2200 AC 11/15 PO 2152 Tiotropium [place] 1 PUF DAILY 11/15 2215 AC 11/16 INH 0912 Vital Signs & I&O Last 24 Hrs of Vitals and I&O: Vital Signs Date Time Temp Pulse Resp B/P B/P Pulse O2 O2 Flow FiO2 Mean Ox Delivery Rate 11/17 627 97.9 84 22 138/78 94 Room Air 11/17 0000 Room Air 11/16 2146 97.9 65 19 100/52 92 Room Air 11/16 2038 68 100/52 11/16 1835 94 Room Air 11/16 1339 96.5 58 19 114/50 94 Room Air Intake & Output 11/17 1600 11/17 0800 11/17 0000 Intake Total 240 720 Output Total 750 Balance 240 -30 Intake, Oral 240 720 Number 0 Bowel Movements Output, Urine 750 Laboratory Tests 11/17 11/16 11/15 0747 0622 1045 Chemistry Sodium (137 - 145 mmol/L) Pending 140 142 Potassium (3.5 - 5.1 mmol/L) Pending 4.2 4.0 Chloride (98 - 107 mmol/L) Pending 101 100 Carbon Dioxide (22 - 30 mmol/L) Pending 28 30 Anion Gap (5 - 16) Pending 10 12 BUN (9 - 20 mg/dL) Pending 20 17 Creatinine (0.7 - 1.2 mg/dL) Pending 0.7 0.8 Estimated GFR (>60 ml/min) > 60 > 60 BUN/Creatinine Ratio (7 - 25 %) Pending 28.6 H 21.3 Glucose (65 - 99 mg/dL) 170 H Calcium (8.4 - 10.2 mg/dL) 8.6 Total Bilirubin (0.2 - 1.3 mg/dL) 2.7 H AST (17 - 59 U/L) 18 ALT (21 - 72 U/L) 39 Alkaline Phosphatase (< 127 U/L) 106 Troponin I (<0.11 ng/ml) < 0.01 [id number] Pept (<125 pg/mL) 1030 H Total Protein (6.3 - 8.2 g/dL) 5.8 L Albumin (3.5 - 5.0 g/dL) 3.5 Globulin (1.9 - 4.2 gm/dL) 2.3 Albumin/Globulin Ratio (1.1 - 2.2 %) 1.5 Hematology CBC w Diff Pending NO MAN DIFF REQ WBC (4.8 - 10.8 /CUMM) Pending 13.2 H RBC (4.70 - 6.10 /CUMM) Pending 4.49 L Hgb (14.0 - 18.0 G/DL) Pending 12.4 L Hct (42 - 52 %) Pending 37.3 L MCV (80.0 - 94.0 FL) Pending 83.2 MCH (27.0 - 31.0 PG) Pending 27.7 RDW (11.5 - 14.5 %) Pending 15.5 H Plt Count (130 - 400 /CUMM) Pending 146 MPV (7.4 - 10.4 FL) Pending 9.1 Gran % (42.2 - 75.2 %) 79.6 H Lymphocytes % (20.5 - 51.1 %) 12.4 L Monocytes % (1.7 - 9.3 %) 7.0 Eosinophils % (0 - 5 %) 0.7 Basophils % (0.0 - 2.0 %) 0.3 Absolute Granulocytes (1.4 - 6.5 /CUMM) 10.5 H Absolute Lymphocytes (1.2 - 3.4 /CUMM) 1.6 Absolute Monocytes (0.10 - 0.60 /CUMM) 0.9 H Absolute Eosinophils (0.0 - 0.7 /CUMM) 0.1 Absolute Basophils (0.0 - 0.2 /CUMM) 0 PUBS MCHC (33.0 - 37.0 G/DL) Pending 33.4 Microbiology Date/Time Procedure - Status Source Growth 11/15 1412 Respiratory Culture - CAN LOWER RESP Cancelled: SPECIMEN NOT RECEIVED IN LABORATORY 11/15 1412 Gram Stain - CAN LOWER RESP Cancelled: SPECIMEN NOT RECEIVED IN LABORATORY 11/15 1324 Legionella Antigen - CAN URINE ROUT Cancelled: SPECIMEN NOT RECEIVED IN LABORATORY 11/15 1324 Streptococcus pneumoniae Antigen (M - CAN URINE ROUT Cancelled: SPECIMEN NOT RECEIVED IN LABORATORY 11/15 1045 Blood Culture - RES BLOOD 11/15 1035 Blood Culture - RES BLOOD 11/15 1015 Respiratory Culture - COMP LOWER RESP 11/15 1015 Gram Stain - COMP LOWER RESP 11/15 1012 Influenza Virus A & B Rapid Smear - COMP NASOPHARYN Impression/Plan Impression/Plan Impression/Plan: On examiantion: he looks in mild distress, Lung: whidspread rhonchi and expiratory wheezing, Heart: regular rhythm, no murmur, pulse intact, no edema IMPRESSION This is a gentleman with history of more than [id number] smoking quit many years ago, very severe emphysema noted in his previous CAT scan, mild bronchitis on and off with no previous intubation, coronary artery disease with previous bypass surgery, polymyalgia rheumatica on chronic prednisone therapy hence immunosuppressed, diabetes, hyperlipidemia, history of BPH, previous history of lung nodules, now comes with * Very severe emphysema radiologically with mod performance status with acute copd exacerbation despite out pt measures, with mild hypoxia and productive sputum * Previous history of lung nodule probably rounded atx and ct improved since 2013 and hence unlikely malignancy, no ct needed for now due to his very advanced emphysema * Polymyalgia rheumatica on chronic steroids. He says his pain is resolved since she's been on steroids. Hence patient is immunosuppressed * Stable Coronary artery disease in the past status post CABG, irregular rhythm with previous supraventricular tachycardia * Diabetes, BPH, HTN REC Much improved Po prednisone taper in few days Nebs atc Change to po abx in am Avoid high dose betablockers Will follow as out pt and pt to be dcd today DC on spiriva and symbicort
[2017-11-17 09:57] LABS: ABSOLUTE LYMPH COUNT 0.6 /CUMM (1.2-3.4); ABSOLUTE MONOCYTE COUNT 0.7 /CUMM (0.10-0.60); GRANULOCYTE % 94.3 % (42.2-75.2); HEMATOCRIT 39.3 % (42-52); MEAN CORPUSCULAR HGB 27.7 PG (27.0-31.0); MEAN CORPUSCULAR HGB CONC 32.8 G/DL (33.0-37.0); MEAN CORPUSCULAR VOLUME 84.4 FL (80.0-94.0); MEAN PLATELET VOLUME 9.1 FL (7.4-10.4); PLATELET COUNT 167 /CUMM (130-400); RBC DISTRIBUTION WIDTH 15.7 % (11.5-14.5); RED BLOOD CELL CT 4.66 /CUMM (4.70-6.10)
[2017-11-17 10:02] LABS: WHITE BLOOD CELL COUNT 21.9 /CUMM (4.8-10.8)
[2017-11-17] MEDS ORDERED: PREDNISONE10 M2 PO ×2 (10:39→11:09)
[2017-11-17] MEDS ORDERED: CEFUROXIME250 M1 PO ×2 (10:39→11:09)
--- NOTE | 2017-11-17 10:40 | Patient Discharge Instructions ---
Discharge Instructions General Discharge Information Special Instructions: Please follow up with your pcp in 1-2 weeks. Please follow up with your pulmnologist (Dr. Rich) in 1-2 weeks. Acute Coronary Syndrome Inclusion Criteria At DC or during hospital stay patient has or had the following: Discharge Core Measures Meds if any: Prescribed or Continued at Discharge Meds if any: NOT Prescribed or Continued at Discharge Congestive Heart Failure Inclusion Criteria At DC or during hospital stay patient has or had the following: Discharge Core Measures Meds if any: Prescribed or Continued at Discharge Meds if any: NOT Prescribed or Continued at Discharge Cerebrovascular accident Inclusion Criteria At DC or during hospital stay patient has or had the following: CVA/TIA Diagnosis No Discharge Core Measures Meds if any: Prescribed or Continued at Discharge Meds if any: NOT Prescribed or Continued at Discharge Venous thromboembolism Discharge Core Measures - Per Current guidelines, there needs to be overlap - treatment for the first 5 days of Warfarin therapy. - If discharged on Warfarin prior to 5 days of - overlap therapy, the patient will need to be - assessed for post discharge needs including - *Post discharge parental anticoagulation - *Warfarin and/or parental anticoagulation education - *Follow up date to check INR post discharge Meds if any: Prescribed or Continued at Discharge Note: Overlap Therapy is Warfarin and Anticoagulant Meds if any: NOT Prescribed or Continued at Discharge
[2017-11-17] MEDS ORDERED: SYMBICORT 16010.2 GM INH (10:41)
[2017-11-17 12:30] VITALS: BP 122/60
== END 2017-11-17 13:11 | disposition home health service (06) | DRG 192 ==
LOC: ERH 09:41 → ERHI 13:06 → 2NB 13:06 → ENRESERV 19:38 → ENTRNSPT 20:43 → 2NB 20:53 → CMPTRNSPT 21:02 → 2NB 11-17 09:57 → ENPENDDIS 11-17 11:13 → 2NB 11-17 13:11
PROVIDERS: Emergency Medicine
DX: J44.1 Chronic obstructive pulmonary disease with (acute) exacerbation (principal); E11.8 Type 2 diabetes mellitus with unspecified complications; Z95.1 Presence of aortocoronary bypass graft; R09.02 Hypoxemia; Z79.4 Long term (current) use of insulin; Z79.84 Long term (current) use of oral hypoglycemic drugs; I10 Essential (primary) hypertension; M35.3 Polymyalgia rheumatica; H35.30 Unspecified macular degeneration; I25.10 Atherosclerotic heart disease of native coronary artery without angina pectoris; K21.9 Gastro-esophageal reflux disease without esophagitis; N40.0 Benign prostatic hyperplasia without lower urinary tract symptoms; Z87.891 Personal history of nicotine dependence
CPT/HCPCS: 2NBSP; 36415; 71045; 82436; 87040; 87070; 87449; 87450; 87804; 87804-59; 93005; 93010; 97116-GO; 97161-GP; 97530-GO; J0456; J0696; J1650; J2920; J2930; J3490; J7040

== ENCOUNTER 2018-02-28 13:12 | Emergency (ER) | payer OTHER, MEDICARE ==
[~2018-02-28] VITALS: Ht 177.8 cm; Wt 74.8 kg
[~2018-02-28 13:12] MED LIST changes: +CARTIA XT120 M1 PO; +CEFUROXIME250 M1 PO; +MECLIZINE HCL12.5 M1 PO; +METFORMIN HCL500 M3 PO; +PREDNISONE10 M2 PO; +SYMBICORT 16010.2 GM INH
[2018-02-28] MEDS ORDERED: TACLONEX OINTME60 GM TOP (14:24)
[2018-02-28] MEDS ORDERED: TRELEGY ELLIPT1 EACH PO (14:25)
[2018-02-28] MEDS ORDERED: PROAIR HFA8.5 GM INH (14:26)
--- NOTE | 2018-02-28 14:27 | ED DYSPNEA/ASTHMA COMPLAINT ---
History of Present Illness General Chief Complaint: Dyspnea (COPD, CHF, Other) Stated Complaint: BIBA FOR SOB Source: patient, old records Exam Limitations: no limitations Vital Signs & Intake/Output Vital Signs & Intake/Output Vital Signs Date Time Temp Pulse Resp B/P B/P Pulse O2 O2 Flow FiO2 Mean Ox Delivery Rate 02/29 2032 96.3 68 18 188/71 97 Room Air 02/28 1812 96.0 69 18 194/79 96 Room Air 02/28 1540 97 02/28 1414 76 18 185/87 95 Room Air 02/28 1321 98.0 66 24 204/93 97 Room Air Allergies Coded Allergies: NO KNOWN ALLERGIES (11/13/13) Triage Note: BIB[facility] FROM [facility]. C/ DIZZINESS SINCE YESTERDAY AND SOB 'FOR A LONG TIME". STATES HE IS ALWAYS SOB. ALERT, DENIES CHEST PAIN. Triage Nurses Notes Reviewed? yes HPI: Patient presents for evaluation of dyspnea shakiness and dizziness that began this morning shortly after awakening. The fact the patient states that he "couldn't feel his lungs" but denied chest pain, abdominal pain, vomiting, diarrhea, dysuria, rashes, aphasia, facial droop or focal motor weakness. The patient interestingly states he "always has lung trouble". He refers seeing Dr. Rich and having been prescribed a metered-dose inhaler in the past. He states that they have cut down on the use of the MDI recently. (Amy CARRANZA,Wilfredo Koehler) Reconcile Medications Albuterol Sulfate (Proair Hfa) 90 MCG HFA.AER.AD 1-2 PUFF INH Q4 HRS NEEDED PRN SHORTNESS OF BREATH (Reported) Aspirin (Ecotrin*) 81 MG TABLET.DR 1 TAB PO DAILY HEART HEALTH (Reported) Atorvastatin Calcium (Lipitor) 20 MG TABLET 1 TAB PO DAILY heart Azithromycin (Zithromax) 250 MG TABLET 1 DP PO AD BRONCHITIS 2 the first day followed by 1 for days 2-5 Calcipotriene/Betamethasone (Taclonex Ointment) 0.005 %-0.064 % OINT...G. 1 JANETTE TOP DAILY PRN PSORIASIS (Reported) Diltiazem HCl (Cartia Xt) 120 MG CAP.ER.24H 1 CAP PO DAILY HEART (Reported) Fluticasone/Salmeterol (Advair 250-50 Diskus) 1 EACH BLST.W.DEV 1 PUF INH BID BREATHING PROBLEMS (Reported) Fluticasone/Umeclidin/Vilanter (Trelegy Ellipta 100-62.5-25) 100-62.5 BLST.W.DEV 1 PUFF PO DAILY BREATHING PROBLEMS (Reported) Insulin Glargine,Hum.rec.anlog (Lantus Solostar) 100 UNIT/ML (3 ML) INSULN.PEN 20 UNIT SC QPM DIABETES (Reported) Losartan Potassium (Cozaar) 25 MG TABLET 1 TAB PO DAILY heart Meclizine HCl 12.5 MG TABLET 2 TAB PO Q8P PRN DIZZINESS (Reported) Metformin HCl 500 MG TABLET 1 TAB PO DAILY DIABETES (Reported) Metoprolol Succinate 25 MG TAB 1 TAB PO DAILY BP (Reported) Omeprazole 40 MG CAPSULE.DR 1 CAP PO DAILY GI (Reported) Prednisone 20 MG TABLET 1 TAB PO DAILY COPD Tamsulosin HCl (Flomax) 0.4 MG CAP.ER.24H 1 CAP PO QPM URINARY (Reported) Tiotropium [place] (Spiriva) 18 MCG CAP.W.DEV 1 CAP INH DAILY COPD (Reported) Vit C/E/Zn/Coppr/Lutein/Zeaxan (Preservision Areds 2 Softgel) 250-200-40 CAPSULE 1 CAP PO BID EYE (Reported) (Wilfredo Henao DO) Past History Travel History Traveled to [place] past 21 day No Medical History Any Pertinent Medical History? 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 SISTER (stomach cancer). FATHER (heart disease). Hx Contributory? No (Wilfredo Reyes MD) Review of Systems Review of Systems Constitutional: Reports: no symptoms. EENTM: Reports: no symptoms. Respiratory: Reports: see HPI. Cardiovascular: Reports: no symptoms. GI: Reports: no symptoms. Genitourinary: Reports: no symptoms. Musculoskeletal: Reports: no symptoms. Skin: Reports: no symptoms. Neurological/Psychological: Reports: tremors. Hematologic/Endocrine: Reports: no symptoms. Immunologic/Allergic: Reports: no symptoms. All Other Systems: Reviewed and Negative (Wilfredo Reyes MD) Physical Exam Physical Exam Respiratory: see below Comments: Gen.: Well-nourished, well-developed, no acute respiratory distress. Head: Normocephalic, atraumatic. Eyes: Normal inspection bilaterally Ears: Normal inspection bilaterally Nose: Normal inspection Throat/mouth : Moist mucosa Neck: Supple, full range of motion, no goiter Heart: Regular rate and rhythm, no murmurs rubs or gallops Lungs: Faint end expiratory wheezing with decreased air entry bilaterally Chest: Nontender Back: Normal range of motion Abdomen: Soft, nontender, nondistended, normal bowel sounds Extremities: Normal range of motion grossly, equal radial pulses, no cyanosis clubbing or edema, calves nontender Neurologic: Cranial nerves grossly intact, speech is clear Skin: warm and dry Psychiatric: Calm, cooperative, no apparent delusions or hallucinations (Wilfredo Reyes MD) Core Measures ACS in differential dx? No CVA/TIA Diagnosis No Sepsis Present: No Sepsis Focused Exam Completed? No (Wilfredo Henao DO) Progress Plan of Care: Orders Procedure Date/time Status Heart Healthy Diet 03/01 B Active TROPONIN LEVEL 02/28 1730 Complete EKG 02/28 1730 Active Telemetry/Washcloth Folder 02/28 1426 Active TROPONIN LEVEL 02/28 1426 Complete MAGNESIUM 02/28 1426 Complete CBC WITHOUT DIFFERENTIAL 02/28 1426 Complete B-TYPE NATRIURETIC PEP (BNP) 02/28 1426 Complete BASIC METABOLIC PANEL 02/28 1426 Complete EKG 02/28 1313 Active Laboratory Tests 02/28/18 1851: Troponin I < 0.01 02/28/18 1446: Anion Gap 9, Estimated GFR > 60, BUN/Creatinine Ratio 15.7, Glucose 84, Calcium 9.2, Magnesium 1.5 L, Troponin I < 0.01, Vfp-V-Itrdfutivra Pept 919 H, CBC w Diff NO MAN DIFF REQ, RBC 4.71, MCV 83.6, MCH 27.9, MCHC 33.3, RDW 15.7 H, MPV 8.3, Gran % 68.1, Lymphocytes % 23.5, Monocytes % 6.4, Eosinophils % 2.0, Basophils % 0, Absolute Granulocytes 4.3, Absolute Lymphocytes 1.5, Absolute Monocytes 0.4, Absolute Eosinophils 0.1, Absolute Basophils 0 Diagnostic Imaging: Discussed w/RAD: Radiology Read. CXR Impression: PATIENT: ANAY VILLALOBOS PRESENT AGE: 87 PATIENT ACCOUNT NO: [id number] : [birth year] LOCATION: [facility] ORDERING PHYSICIAN: Wilfredo Reyes MD SERVICE DATE: 02/28/18 EXAM TYPE: RAD - XRY-PORTABLE CHEST XRAY EXAMINATION: XR PORTABLE CHEST CLINICAL INFORMATION: Dyspnea. Dizziness, wheezing. COMPARISON: 02/05/2018 TECHNIQUE: Portable frontal view of the chest was obtained. FINDINGS: Median sternotomy wires appear intact. Cardiac leads overlie the chest. The lungs are well expanded. Linear left basilar atelectasis/scarring is similar to previous. No significant pleural effusion. Markings in the retrocardiac region are again noted, which did not have a consolidative appearance and may be associated with pulmonary vascularity. There is no consolidation. No pneumothorax. The cardiomediastinal silhouette is unchanged, with a calcified aorta. IMPRESSION: Linear atelectasis/scarring at the left lung base. No consolidation. DICTATED BY: Herve Malik MD DATE/ TIME DICTATED:02/28/181453 BLOOD BANK TECHNICIAN:LORNA DATE/TIME TRANSCRIBED: 02/28/181453 CONFIDENTIAL, DO NOT COPY WITHOUT APPROPRIATE AUTHORIZATION. < Electronically signed in Other Vendor System> SIGNED BY: Herve Malik MD 02/28/18 1502 Initial ED EKG: NSR, rate (63), 1ST HB Prior EKG: unchanged Comments: 02/28/2018 3:17:52 PM patient signed out to Dr. Henao. (Amy CARRANZA,Wilfredo Koehler) Differential Diagnosis: asthma, AMI, COPD (Wilfredo Henao DO) Departure Departure Condition: Stable Referrals: Epi CARRANZA,Carl Hudson (PCP/Family) Departure Forms: Customer Survey General Discharge Information (Amy CARRANZA,Wilfredo Koehler) Departure Disposition: STILL A PATIENT Clinical Impression Primary Impression: COPD (chronic obstructive pulmonary disease) Prescriptions: Current Visit Scripts Azithromycin (Zithromax) 1 DP PO AD #6 TAB 2 the first day followed by 1 for days 2-5 Prednisone 1 TAB PO DAILY #5 TAB Comments 02/28/18 87-year-old man signed out to me by Dr. Reyes status post exacerbation of shortness of breath suspected to be examined COPD. He also had some chest tightness. Serial troponins have been ordered. The patient was observed in the ED for serial troponins. Labs were unremarkable. Serial troponins negative. EKG unchanged. Chest x-ray no infiltrate. Lungs were clear on reevaluation. He was discharged and will follow-up with his doctor this week. (Wilfredo Henao DO) Critical Care Note Critical Care Note Critical Care Time: non-applicable (Wilfredo Henao DO)
[2018-02-28 14:55] LABS: ABSOLUTE BASOPHIL COUNT 0 /CUMM (0.0-0.2); ABSOLUTE EOSINOPHIL COUNT 0.1 /CUMM (0.0-0.7); ABSOLUTE GRANULOCYTE CT 4.3 /CUMM (1.4-6.5); ABSOLUTE LYMPH COUNT 1.5 /CUMM (1.2-3.4); ABSOLUTE MONOCYTE COUNT 0.4 /CUMM (0.10-0.60); BASOPHIL % 0 % (0.0-2.0); GRANULOCYTE % 68.1 % (42.2-75.2); HEMATOCRIT 39.3 % (42-52); MEAN CORPUSCULAR HGB 27.9 PG (27.0-31.0); MEAN CORPUSCULAR HGB CONC 33.3 G/DL (33.0-37.0); MEAN CORPUSCULAR VOLUME 83.6 FL (80.0-94.0); MEAN PLATELET VOLUME 8.3 FL (7.4-10.4); PLATELET COUNT 124 /CUMM (130-400); RBC DISTRIBUTION WIDTH 15.7 % (11.5-14.5); RED BLOOD CELL CT 4.71 /CUMM (4.70-6.10); WHITE BLOOD CELL COUNT 6.3 /CUMM (4.8-10.8)
--- NOTE | 2018-02-28 15:02 | RADIOLOGY REPORT ---
EXAMINATION: XR PORTABLE CHEST CLINICAL INFORMATION: Dyspnea. Dizziness, wheezing. COMPARISON: 02/05/2018 TECHNIQUE: Portable frontal view of the chest was obtained. FINDINGS: Median sternotomy wires appear intact. Cardiac leads overlie the chest. The lungs are well expanded. Linear left basilar atelectasis/scarring is similar to previous. No significant pleural effusion. Markings in the retrocardiac region are again noted, which did not have a consolidative appearance and may be associated with pulmonary vascularity. There is no consolidation. No pneumothorax. The cardiomediastinal silhouette is unchanged, with a calcified aorta. IMPRESSION: Linear atelectasis/scarring at the left lung base. No consolidation.
[2018-02-28] MEDS ORDERED: ZITHROMAX250 M2 PO (19:56)
[2018-02-28] MEDS ORDERED: PREDNISONE20 M1 PO (19:56)
[2018-02-28 20:32] VITALS: BP 188/71
== END 2018-02-28 20:34 ==
LOC: ERH 13:12
PROVIDERS: Emergency Medicine
DX: J44.9 Chronic obstructive pulmonary disease, unspecified (principal); R07.89 Other chest pain; Z87.891 Personal history of nicotine dependence; I10 Essential (primary) hypertension; E11.9 Type 2 diabetes mellitus without complications; Z79.84 Long term (current) use of oral hypoglycemic drugs
CPT/HCPCS: 1263; 71045; 93005; 93010

== ENCOUNTER 2018-04-23 16:56 | Inpatient (IN) | payer OTHER, MEDICARE ==
[~2018-04-23] VITALS: Ht 180.3 cm; Wt 52.3 kg
[~2018-04-23 16:56] MED LIST changes: +PREDNISONE20 M1 PO; +PROAIR HFA8.5 GM INH; +TRELEGY ELLIPT1 EACH PO; +ZITHROMAX250 M2 PO
--- NOTE | 2018-04-23 18:15 | CT SCAN REPORT ---
EXAMINATION: CT HEAD AND CT CERVICAL SPINE WITHOUT CONTRAST. CLINICAL INFORMATION: Fall with head strike. No pain. Possible LOC. COMPARISON: None TECHNIQUE: 5 mm thin axial and reformatted 2.5 mm thin coronal images of brain were obtained without contrast. Subsequently 2.5 minutes and axial and reformatted sagittal coronal images of brain were obtained. FINDINGS: Brain: There is no acute intra-axial, extra-axial bleed, collection, masses or midline shift. There is no acute infarct in evolution. There is diffuse periventricular hypodensity without mass effect. The lateral ventricles are enlarged and so are in the cortical sulci. The paranasal sinuses are well aerated. The mastoid sinuses are well-aerated. There is no calvarial abnormality. Cervical spine: There is normal cervical lordosis. The vertebral heights, alignment is normal. There is a nondisplaced vertical lucency traversing the posterior C2 vertebral body likely nutrient foramina. There is no fracture seen involving the C2 or the C1 vertebra. There is no fracture involving any of the cervical vertebra. There is a broad anterior bridging osteophyte C3 and C4 vertebra. There is bilateral facet joint arthropathy C2-C3, C3-C4, C4-C5 and C5-C6 disc levels greater on the left than right. The prevertebral and paravertebral soft tissues are normal. IMPRESSION: No acute intracranial process seen. Moderate cerebral atrophy with chronic small vessel ischemic changes. There is no acute fracture or dislocation cervical spine. Moderate degenerative facet joint arthropathy left C2-3 through C5-C6 disc levels and minimal on the right side.
--- NOTE | 2018-04-23 18:21 | ED GENERAL ADULT ---
History of Present Illness General Chief Complaint: Fall Stated Complaint: BIBA FOR TRIP AND FALL, R SIDED RIB PAIN Source: patient, EMS Exam Limitations: no limitations Vital Signs & Intake/Output Vital Signs & Intake/Output Vital Signs Date Time Temp Pulse Resp B/P B/P Pulse O2 O2 Flow FiO2 Mean Ox Delivery Rate 04/25 1419 98.4 67 20 130/60 98 Room Air 04/25 0825 56 130/64 04/25 0611 16.0 56 16 130/64 98 Room Air 04/24 2236 98.6 71 18 130/56 92 Room Air ED Intake and Output 04/25 0000 04/24 1200 Intake Total 1770 520 Output Total 1800 325 Balance -30 195 Intake, IV 700 400 Intake, Oral 1070 120 Number 1 Bowel Movements Output, Urine 1800 325 Patient 115 lb Weight Weight Bed scale Measurement Method Allergies Coded Allergies: NO KNOWN ALLERGIES (11/13/13) Triage Note: PT BIBA FROM [facility] FOR GLF AT ABOUT 1500 PER PT. PT DENIES DENIES HITTING HIS HEAD, DENIES LOC(-)BLOOD THINNERS. C/O RIGHT ANKLE PAIN 9/10 WHEN TOUCHED. VSLina CARRANZA AWARE Triage Nurses Notes Reviewed? yes Onset: Abrupt HPI: This is an 87-year-old male with history of hypertension, hyperlipidemia, coronary artery disease status post CABG, COPD, polymyalgia rheumatica, presented to the emergency department with fall. Patient was at his assisted living facility, was feeling feverish and chills this morning. He had a temp of 103 Fahrenheit at the facility this morning with unclear source. He was in his apartment, went into his bathroom to check his temperature again. He got his thermometer and then as he walked out of the bathroom he felt like his legs were weak and/or shaking, he fell backwards, striking his right upper back and the back of his head. He denies losing consciousness. He is brought here by EMS. He complains only of right-sided back pain upon arrival. She is febrile to 102.1 rectally. He has no other surface trauma. He does complain of some chronic foot in his right ankle which is not acute. He endorses poor appetite, denies vomiting, diarrhea, headache, dysuria, abdominal pain, cough, anterior chest pain, rash. (Brad CARRANZA,Yordy) Reconcile Medications Albuterol Sulfate (Proair Hfa) 90 MCG HFA.AER.AD 1-2 PUFF INH Q4 HRS NEEDED PRN SHORTNESS OF BREATH (Reported) Aspirin (Ecotrin*) 81 MG TABLET.DR 1 TAB PO DAILY HEART HEALTH (Reported) Atorvastatin Calcium (Lipitor) 20 MG TABLET 1 TAB PO DAILY heart Diltiazem HCl (Cardizem Cd) 240 MG CAP.ER.24H 1 CAP PO DAILY HEART HEALTH ( Reported) Fluticasone/Umeclidin/Vilanter (Trelegy Ellipta 100-62.5-25) 100-62.5 BLST.W.DEV 1 PUFF PO DAILY BREATHING PROBLEMS (Reported) Insulin Glargine,Hum.rec.anlog (Lantus Solostar) 100 UNIT/ML (3 ML) INSULN.PEN 20 UNIT SC QPM DIABETES (Reported) Losartan Potassium (Cozaar) 25 MG TABLET 1 TAB PO DAILY heart Meclizine HCl 12.5 MG TABLET 2 TAB PO Q8P PRN DIZZINESS (Reported) Metoprolol Succinate 25 MG TAB 1 TAB PO DAILY BP (Reported) Omeprazole 40 MG CAPSULE.DR 1 CAP PO DAILY GI (Reported) Tamsulosin HCl (Flomax) 0.4 MG CAP.ER.24H 1 CAP PO QPM URINARY (Reported) (Wilfredo Henao DO ([facility])) Past History Travel History Traveled to [place] past 21 day No Medical History Any Pertinent Medical History? 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 SISTER (stomach cancer). FATHER (heart disease). Hx Contributory? No (Yordy Salinas MD) Review of Systems Review of Systems Constitutional: Reports: chills, fever, malaise, weakness. EENTM: Reports: no symptoms. Respiratory: Reports: no symptoms. Denies: cough, hemoptysis, orthopnea, short of breath, sputum production, stridor, wheezing. Cardiovascular: Reports: no symptoms. Denies: chest pain. GI: Reports: see HPI. Denies: abdominal pain, constipation, diarrhea, distention, vomiting. Genitourinary: Reports: no symptoms. Denies: discharge, dysuria, frequency, hematuria. Musculoskeletal: Reports: back pain. Denies: neck pain. Skin: Reports: no symptoms. Denies: rash. Neurological/Psychological: Reports: see HPI. (Yordy Salinas MD) Physical Exam Physical Exam General Appearance: well developed/nourished, no apparent distress, alert, awake , comfortable, thin Head: atraumatic, normal appearance Eyes: Bilateral: normal appearance. Ears, Nose, Throat: normal pharynx, normal ENT inspection, hearing grossly normal Neck: normal inspection, supple, full range of motion, no midline tenderness Respiratory: normal breath sounds, chest non-tender, no respiratory distress, lungs clear Cardiovascular: regular rate/rhythm Gastrointestinal: soft, non-tender Rectal: normal exam, normal rectal tone Back: normal range of motion, Mild ttp to right paraspinal region in the area of T7/8 Extremities: normal inspection, normal capillary refill, normal range of motion, no edema Neurologic/Psych: no motor/sensory deficits, awake, alert, oriented x 3, normal mood/affect, 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 No CVA/TIA Diagnosis: No Sepsis Present: No (Will consider in differential) Sepsis Focused Exam Completed? Yes (Yordy Salinas MD) Progress Differential Diagnoses I considered the following diagnoses in my evaluation of the patient: This patient has 2 separate processes simultaneously. On the first hand, he has suffered a fall and will therefore need evaluation for possible intracranial hemorrhage, C-spine injury, other thoracic spinal injury, chest wall injury, or occult torso trauma. On the other hand, he also complains of fever since this morning with decreased appetite and chills. Some concern for pneumonia, urinary tract infection, intra-abdominal infection, bacteremia. Could be viral illness. Some concern for metabolic derangement given lack of eating today and feeling weak. Low suspicion for acute cerebrovascular accident in this patient. Low suspicion also for ACS or pulmonary embolism Plan of Care: Orders Procedure Date/time Status EKG 04/25 936 Active Anticipated Discharge 04/25 UNK Active INCENTIVE SPIROMETRY TRX CHG 04/24 UNK Complete Current Medications Sig/Chacho Start time Last Medication Dose Stop Time Status Admin Insulin Detemir 20 UNITS AT BEDTIME 04/24 2100 AC 04/24 (Levemir) 211 Albuterol Sulfate 2 PUF Q4P PRN 04/24 1400 AC 04/24 (Ventolin) 1430 Acetaminophen 325 MG Q6P PRN 04/24 0945 AC (Tylenol) Acetaminophen 650 MG Q4P PRN 04/24 0945 AC 04/24 (Tylenol) 2115 Aspirin Buffered 81 MG DAILY 04/24 0900 AC 04/25 (Ecotrin) 0824 Atorvastatin Calcium 20 MG DAILY 04/24 0900 AC 04/25 (Lipitor) 0824 Azithromycin 500 MG DAILY 04/24 0900 AC 04/25 (Zithromax) 0825 Sodium Chloride 250 ML (Normal Saline 0.9%) Ceftriaxone Sodium 1,000 MG DAILY 04/24 0900 AC 04/25 (Rocephin) 0829 Diltiazem HCl 240 MG DAILY 04/24 0900 AC 04/25 (Cardizem CD) 0824 Metoprolol Succinate 25 MG DAILY 04/24 0900 AC 04/25 (Toprol XL) 0825 Insulin Aspart 0 TIDAC 04/24 0800 AC 04/24 (NovoLOG) 1147 Omeprazole 40 MG DAILY AC 04/24 0700 AC 04/25 (Prilosec) 0510 Heparin Sodium 5,000 UNIT Q8 04/24 0600 AC 04/25 (Porcine) 1406 Laboratory Tests 04/25/18 0705: Anion Gap 10, Estimated GFR > 60, BUN/Creatinine Ratio 21.4 Patient will be evaluated with CT head and C-spine, CT chest abdomen pelvis with IV contrast, labs, EKG, symptoms well-managed with antipyretic, morphine, normal saline. Plan for urinalysis as well. If we isolated an infectious source, will start broad-spectrum antibiotics. On reassessment, patient feels improved but continues to describe a feeling of weakness. Given this, seems reasonable to admit patient to hospitalist service on gen med for further monitoring and IV antibiotics. Initial ED EKG: normal intervals, normal p-waves, normal QRS complex, normal sinus rhythm (Yordy Salinas MD) Departure Departure Time of Disposition: 2304 Disposition: STILL A PATIENT Condition: Stable Clinical Impression Primary Impression: Community acquired pneumonia Qualifiers: Laterality: left Lung location: lower lobe of lung Qualified Code: J18.1 - Lobar pneumonia, unspecified organism Referrals: Epi CARRANZA,Carl Hudson (PCP/Family) Departure Forms: Customer Survey General Discharge Information Admission Note Spoke With: Edi Deleon MD Documentation of Exam: Documentation of any treatments & extenuating circumstances including Concerns Regarding Discharge (functional status, medication knowledge or non-compliance, living conditions, etc.) that warrant an admission rather than observation: IV antibiotics, IV fluids, frequent vital signs, possible physical therapy (Yordy Salinas MD) Resident Co-Sign Statement Statement: ED Attending supervision documentation- [] I saw and evaluated the patient. I have also reviewed all the pertinent lab results and diagnostic results. I agree with the findings and the plan of care as documented in the Resident's documentation. [x] I have reviewed the ED Record and agree with the Resident's documentation. [] Additions or exceptions (if any) to the Resident's note and plan are summarized below: [] (Wilfredo Henao DO ([facility])) Critical Care Note Critical Care Note Critical Care Time: non-applicable (Yordy Salinas MD)
[2018-04-23 19:27] LABS: ABSOLUTE BASOPHIL COUNT 0.1 /CUMM (0.0-0.2); ABSOLUTE EOSINOPHIL COUNT 0 /CUMM (0.0-0.7); ABSOLUTE GRANULOCYTE CT 8.4 /CUMM (1.4-6.5); ABSOLUTE MONOCYTE COUNT 1.1 /CUMM (0.10-0.60); BASOPHIL % 0.5 % (0.0-2.0); EOSINOPHIL % 0.2 % (0-5); GRANULOCYTE % 79.4 % (42.2-75.2); HEMATOCRIT 42.7 % (42-52); MEAN CORPUSCULAR HGB 28.6 PG (27.0-31.0); MEAN CORPUSCULAR HGB CONC 33.2 G/DL (33.0-37.0); MEAN CORPUSCULAR VOLUME 85.9 FL (80.0-94.0); MEAN PLATELET VOLUME 8.6 FL (7.4-10.4); PLATELET COUNT 123 /CUMM (130-400); RBC DISTRIBUTION WIDTH 16.5 % (11.5-14.5); RED BLOOD CELL CT 4.97 /CUMM (4.70-6.10); WHITE BLOOD CELL COUNT 10.5 /CUMM (4.8-10.8)
--- NOTE | 2018-04-23 21:52 | CT SCAN REPORT ---
EXAMINATION: CT CHEST, ABDOMEN AND PELVIS WITH IV CONTRAST CLINICAL INFORMATION: Right-sided chest wall and flank pain. History of fall. COMPARISON: Chest x-ray 02/28/2018. TECHNIQUE: 5 mm thin axial and reformatted 3 mm thin sagittal and coronal images of chest, abdomen and pelvis were obtained following IV 100 mL Optiray 320. DLP 436. FINDINGS: CHEST: There is diffuse emphysematous changes of both lungs without acute pneumonic consolidation or contusion. There is left lower lobe posterior basal segment focal consolidation with strand-like atelectasis. There are surgical sutures in the right lung base from previous intervention. There is no pleural effusion. There is minimal left posterior pleural thickening. Right lower lobe pleural calcification is noted. The heart size is normal. Coronary artery calcifications. No pulmonary or effusion seen. No abnormal mediastinal or hilar lymph nodes seen. The tracheal-bronchial tree is widely patent. A right thyroid enlargement with a small nodule and calcification in midpole noted. There are benign lymph nodes in the mediastinum. ABDOMEN AND PELVIS: The liver is normal size, shape and position. It has normal attenuation. No intrahepatic ductal dilatation or focal lesion seen. The gallbladder has been surgically removed. Visualized spleen, pancreas and bilateral adrenal glands are unremarkable. Both kidneys are normal size, shape and position. No radiopaque calculi or hydronephrosis seen. There is a focal 1.1 cm lesion upper pole cortex right kidney, likely cysts. The abdominal aorta is normal caliber with minimal thrombus along the right abdominal wall midabdomen. There is atherosclerotic aortic calcification. No retroperitoneal lymph nodes or mass seen. Scattered stool and gas is seen in the colon without significant distention. The small bowel loops are normal caliber. No free air or free fluid seen. Imaging through the pelvis reveals a normal prostate gland. The bladder is distended and appears unremarkable. Abdominal wall appears unremarkable. Bone windows reveal degenerative disc changes L5-S1 disc levels with mild dorsal and lumbar spondylosis. No lytic or sclerotic process seen. There are median sternotomy sutures from previous intervention. No visible rib fractures seen. IMPRESSION: Focal left lower lobe consolidation. Likely pneumonic infiltrate. Scattered right posterior pleural calcifications are present with minimal left posterior pleural thickening, likely previous asbestosis exposure.. Mild emphysema. Enlarged right thyroid lobe with a small nodule and calcification. Correlate with ultrasound. No acute process seen in the abdomen. The gallbladder has been surgically removed. There is likely cyst upper pole right kidney.
--- NOTE | 2018-04-23 23:35 | History & Physical ---
Madhuri CARRANZA,Steve 04/23/18 6745: General Information and HPI MD Statement: I have seen and personally examined ANAY VILLALOBOS and documented this H&P. The patient is a 87 year old M who presented with a patient stated chief complaint of [Fall, cough]. Source of Information: patient, old records Exam Limitations: no limitations History of Present Illness: Patient is an 87-year-old male with a PMH significant for COPD, vertigo, cataracts, macular degeneration, CAD status post CABG approximately 20 years ago , HTN, HLD, GERD, BPH, anxiety, diabetes, polymyalgia rheumatica, side psoriasis who was brought into the [facility] ED by ambulance from his assisted living home after a fall with head strike. Patient reports that he has had a productive cough with thick clear sputum for the past 1 week. For the past 3 days he has had fatigue and lightheadedness has only been leaving his bed to use the restroom. On the day of admission patient ambulated to the restroom and felt lightheaded and unsteady on his feet and fell backwards hitting his head and the right side of his back. He maintained consciousness throughout the fall and can recall the entire event, he did not lose control of his bowel or bladder , he denied any associated chest pain, palpitations, shortness of breath. He has had subjective fever. Since he has been coughing he denies any chest pain, shortness of breath, palpitations, nausea, vomiting. He is currently complaining of pain only on the right mid back worse with motion. At baseline he ambulates with a walker. On review of systems patient endorses dark melanotic stools for the past several months. 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 SISTER (stomach cancer). FATHER (heart disease). Psychosocial History Where do you live? Extended Care Facility Who Do You Live With? spouse Services at Home: Home Health Aide, Nursing Primary Language: Sudanese Smoking Status: Former Smoker ETOH Use: occasional use Illicit Drug Use: denies illicit drug use Functional Ability ADLs Independent: dressing, eating, toileting, bathing. Ambulation: walker Review of Systems Review of Systems Constitutional: Reports: fever, malaise. Denies: chills. EENTM: Denies: blurred vision, double vision, visual changes. Cardiovascular: Denies: chest pain, palpitations, syncope. Respiratory: Reports: cough, sputum production. Denies: short of breath. GI: Denies: diarrhea, melena, nausea, bloody stool, vomiting. Genitourinary: Denies: dysuria, frequency, hematuria. Musculoskeletal: Reports: back pain. Skin: Reports: no symptoms. Exam & Diagnostic Data Physical Exam General Appearance Alert, Oriented X3, Cooperative, No Acute Distress Skin Temp/Moisture Exam: Warm/Dry Sepsis Skin Exam (color): Normal for Ethnicity HEENT Atraumatic, PERRLA, EOMI, Mucous Membr. moist/pink Cardiovascular Regular Rate, Normal S1, Normal S2 Lungs scant rhonchi, no tenderness to palpation on the R midback or along spine, severe pain with motion Abdomen Normal Bowel Sounds, Soft, No Tenderness Neurological Normal Speech, Strength at 5/5 X4 Ext, Normal Tone, Sensation Intact, Cranial Nerves 3-12 NL Extremities No Clubbing, No Cyanosis, No Edema Last 24 Hrs of Labs/Jc: Laboratory Tests 04/23/18 1905: Anion Gap 8, Estimated GFR > 60, BUN/Creatinine Ratio 25.0, Glucose 131 H, Lactic Acid 1.6, Calcium 9.2, Total Bilirubin 3.5 H, AST 39, ALT 65, Alkaline Phosphatase 117, Total Protein 6.6, Albumin 4.0, Globulin 2.6, Albumin/Globulin Ratio 1.5, CBC w Diff NO MAN DIFF REQ, RBC 4.97, MCV 85.9, MCH 28.6, MCHC 33.2, RDW 16.5 H, MPV 8.6, Gran % 79.4 H, Lymphocytes % 9.3 L, Monocytes % 10.6 H, Eosinophils % 0.2, Basophils % 0.5, Absolute Granulocytes 8.4 H, Absolute Lymphocytes 1.0 L, Absolute Monocytes 1.1 H, Absolute Eosinophils 0, Absolute Basophils 0.1 Microbiology 04/24 239 URINE ROUT: Legionella Antigen - ORD 04/24 023 URINE ROUT: Streptococcus pneumoniae Antigen (M - ORD 04/24 0127 LOWER RESP: Respiratory Culture - ORD 04/24 127 LOWER RESP: Gram Stain - ORD 04/23 194 BLOOD: Blood Culture - RECD 04/23 1935 BLOOD: Blood Culture - RECD 04/23 181 URINE ROUT: Urine Culture - ORD Diagnostic Data Other Results Head and C-spine CT Brain: There is no acute intra-axial, extra-axial bleed, collection, masses or midline shift. There is no acute infarct in evolution. There is diffuse periventricular hypodensity without mass effect. The lateral ventricles are enlarged and so are in the cortical sulci. The paranasal sinuses are well aerated. The mastoid sinuses are well-aerated. There is no calvarial abnormality. Cervical spine: There is normal cervical lordosis. The vertebral heights, alignment is normal. There is a nondisplaced vertical lucency traversing the posterior C2 vertebral body likely nutrient foramina. There is no fracture seen involving the C2 or the C1 vertebra. There is no fracture involving any of the cervical vertebra. There is a broad anterior bridging osteophyte C3 and C4 vertebra. There is bilateral facet joint arthropathy C2-C3, C3-C4, C4-C5 and C5-C6 disc levels greater on the left than right. The prevertebral and paravertebral soft tissues are normal. IMPRESSION: No acute intracranial process seen. Moderate cerebral atrophy with chronic small vessel ischemic changes. There is no acute fracture or dislocation cervical spine. Moderate degenerative facet joint arthropathy left C2-3 through C5-C6 disc levels and minimal on the right side. CT chest abd/pelvis CHEST: There is diffuse emphysematous changes of both lungs without acute pneumonic consolidation or contusion. There is left lower lobe posterior basal segment focal consolidation with strand-like atelectasis. There are surgical sutures in the right lung base from previous intervention. There is no pleural effusion. There is minimal left posterior pleural thickening. Right lower lobe pleural calcification is noted. The heart size is normal. Coronary artery calcifications. No pulmonary or effusion seen. No abnormal mediastinal or hilar lymph nodes seen. The tracheal-bronchial tree is widely patent. A right thyroid enlargement with a small nodule and calcification in midpole noted. There are benign lymph nodes in the mediastinum. ABDOMEN AND PELVIS: The liver is normal size, shape and position. It has normal attenuation. No intrahepatic ductal dilatation or focal lesion seen. The gallbladder has been surgically removed. Visualized spleen, pancreas and bilateral adrenal glands are unremarkable. Both kidneys are normal size, shape and position. No radiopaque calculi or hydronephrosis seen. There is a focal 1.1 cm lesion upper pole cortex right kidney, likely cysts. The abdominal aorta is normal caliber with minimal thrombus along the right abdominal wall midabdomen. There is atherosclerotic aortic calcification. No retroperitoneal lymph nodes or mass seen. Scattered stool and gas is seen in the colon without significant distention. The small bowel loops are normal caliber. No free air or free fluid seen. Imaging through the pelvis reveals a normal prostate gland. The bladder is distended and appears unremarkable. Abdominal wall appears unremarkable. Bone windows reveal degenerative disc changes L5-S1 disc levels with mild dorsal and lumbar spondylosis. No lytic or sclerotic process seen. There are median sternotomy sutures from previous intervention. No visible rib fractures seen. IMPRESSION: Focal left lower lobe consolidation. Likely pneumonic infiltrate. Scattered right posterior pleural calcifications are present with minimal left posterior pleural thickening, likely previous asbestosis exposure.. Mild emphysema. Enlarged right thyroid lobe with a small nodule and calcification. Correlate with ultrasound. No acute process seen in the abdomen. The gallbladder has been surgically removed. There is likely cyst upper pole right kidney. Assessment/Plan Assessment: Patient is an 87-year-old male with a PMH significant for COPD, vertigo, cataracts, macular degeneration, CAD status post CABG approximately 20 years ago , HTN, HLD, GERD, BPH, anxiety, diabetes, polymyalgia rheumatica, side psoriasis who was brought into the [facility] ED by ambulance from his assisted living home after a fall with head strike. He has had a one-week history of productive cough and worsening fatigue and lightheadedness. CT ruled out any intracranial hemorrhage or traumatic injury to the head or neck. CT chest shows left lower lobe consolidation. Vital signs on admission: T 99.4 (T-max 102.1), P 70, RR 18, BP 137/71, pulse ox 94% on room air Labs: WBC 10.5, H/H 14.2/42.7, platelets 123, sodium 135, potassium 5.0, chloride 95, CO2 32, BUN 20, creatinine 0.8, glucose 131 Problem list #Community acquired pneumonia #Fall with head strike, no loss of consciousness #Mild thrombocytopenia #Melena #Hyperbilirubinemia #Incidental finding of enlarged right thyroid nodule with nodule and calcification #Chronic medical problems including vertigo, COPD, macular degeneration, CAD status post CABG, HTN, HLD, GERD, BPH, anxiety, diabetes Plan -Admit to general medicine -IV ceftriaxone, IV azithromycin -Adequate pain control -Urine strep and Legionella antigen, sputum culture, blood cultures -Inpatient versus outpatient workup of incidental thyroid nodule with ultrasound , follow-up thyroid function tests -Check orthostatic vital signs in a.m. -PT evaluation and treatment -Continue home medications, patient was asked to have bring in medication list in a.m. if possible -Guaiac all stools -Follow-up repeat CBC -TRC/nebs Diet: Heart healthy diet DVT prophylaxis: Subcutaneous heparin, Alps CODE STATUS: Full code As Ranked By This Provider Problem List: 1. Community acquired pneumonia Qualifiers Laterality: left Lung location: lower lobe of lung Qualified Code: J18.1 - Lobar pneumonia, unspecified organism 2. Thyroid nodule Core Measures/Misc (07/23) Acute Coronary Syndrome ACS Diagnosis: No Congestive Heart Failure Congestive Heart Failure Diagnosis No Cerebrovascular Accident CVA/TIA Diagnosis: No VTE (View Protocol) VTE Risk Factors Age>40 No Mechanical VTE Prophylaxis d/t N/A MechProphylax Ordered No VTE Pharm Prophylaxis d/t NA PharmProphylax ordered Sepsis (View protocol) Sepsis Present: No If YES complete Sepsis Event Note If YES complete Sepsis Event Note Alda CARRANZA,Ismail 04/24/18 0311: General Information and HPI Allergies/Medications Home Med list Albuterol Sulfate (Proair Hfa) 90 MCG HFA.AER.AD 1-2 PUFF INH Q4 HRS NEEDED PRN SHORTNESS OF BREATH (Reported) Aspirin (Ecotrin*) 81 MG TABLET.DR 1 TAB PO DAILY HEART HEALTH (Reported) Atorvastatin Calcium (Lipitor) 20 MG TABLET 1 TAB PO DAILY heart Diltiazem HCl (Cardizem Cd) 240 MG CAP.ER.24H 1 CAP PO DAILY HEART HEALTH ( Reported) Fluticasone/Umeclidin/Vilanter (Trelegy Ellipta 100-62.5-25) 100-62.5 BLST.W.DEV 1 PUFF PO DAILY BREATHING PROBLEMS (Reported) Insulin Glargine,Hum.rec.anlog (Lantus Solostar) 100 UNIT/ML (3 ML) INSULN.PEN 20 UNIT SC QPM DIABETES (Reported) Losartan Potassium (Cozaar) 25 MG TABLET 1 TAB PO DAILY heart Meclizine HCl 12.5 MG TABLET 2 TAB PO Q8P PRN DIZZINESS (Reported) Metoprolol Succinate 25 MG TAB 1 TAB PO DAILY BP (Reported) Omeprazole 40 MG CAPSULE.DR 1 CAP PO DAILY GI (Reported) Tamsulosin HCl (Flomax) 0.4 MG CAP.ER.24H 1 CAP PO QPM URINARY (Reported) Exam & Diagnostic Data Last 24 Hrs of Vital Signs/I&O Vital Signs Date Time Temp Pulse Resp B/P B/P Pulse O2 O2 Flow FiO2 Mean Ox Delivery Rate 04/24 2236 98.6 71 18 130/56 92 Room Air 04/24 1454 97.4 62 20 100/50 95 Room Air 04/24 1401 Room Air 04/24 0824 73 122/54 04/24 0800 92 Room Air 04/24 0549 98.5 73 18 122/54 92 Room Air Intake & Output 04/25 0800 04/25 0000 04/24 1600 Intake Total 720 1050 Output Total 150 900 900 Balance -150 -180 150 Intake, IV 0 700 Intake, Oral 720 350 Number 0 1 Bowel Movements Output, Urine 150 900 900 Core Measures/Misc (07/23) Sepsis (View protocol) If YES complete Sepsis Event Note If YES complete Sepsis Event Note Resident Review Statement Resident Statement: examined this patient, discussed with technical support internship, agreed with technical support internship Other Findings: 87/M with PMHx of COPD, chronic vertigo, cataracts, CAD s/p CABG 20 years ago, HTN, HLD, IDDM, GERD, BPH, anxiety, polymyalgia rheumatica, who was sent from [facility] because of recent weakness and one episode of fall and head strike. The patient reports 3 days of fatigue and dizziness, on the day of admission he was on his way to the bathroom and he felt unsteady and fell backwards hitting his head. He denies loss of consciousness and can't recall the events. He denies palpitation, chest pain, or shortness breath. He did not bite his tongue and denies loss of control over bowel or urine habits. He is complaining of right lower back pain since the fall. At baseline he ambulates with a walker. Vital: T.max 102 improved to 98.6, HR 70, RR 18, BP 120s/50s, O2 94% on RA Labs: WBC 10.5, H/H 14.2/42.7, platelets 123, sodium 135, potassium 5.0, chloride 95, CO2 32, BUN 20, creatinine 0.8, glucose 131. Imaging: Cervical/head/abdo/perlvis/chest CT showed: Focal left lower lobe consolidation, Enlarged right thyroid lobe with a small nodule and calcification. No acute process seen in the abdomen. The gallbladder has been surgically removed. There is likely cyst upper pole right kidney. No acute intracranial process seen. There is no acute fracture or dislocation. Physical Exam, refer to the technical support internship note Assessment: The patient presents after a fall secondary to weakness and was found to have signs of pneumonia and CT. UA is not significant for infection. He has a mild thrombocytopenia down to 123. He also has total bilirubin of 3.5 and a history of cholecystectomy. Problem list: * CAP * Fall secondary to weakness * Mild thrombocytopenia * Hyperbilirubinemia with history of cholecystectomy * Incidental enlarged right thyroid nodule with nodule and calcification * Chronic vertigo * COPD * CAD status post CABG 20 years ago * HTN, HLD, GERD, IDDM * BPH * Anxiety Plan: * Admitted to general medicine floor * Start IV ceftriaxone and IV azithromycin * Pain control with Tylenol * Panculture, urine strep, urine Legionella * Check orthostatics after patient improved * TRC/nebs * PT evaluation * Thyroid ultrasound after patient improved, can be done as an outpatient * Repeat bilirubin prior to discharge, currently denies abdominal pain * Repeat CBCs in the morning for thrombocytopenia which most likely secondary to infection -Heart healthy diet -DVT PPx with Alps and subcutaneous heparin -FC Pancho CARRANZA, [facility] 04/24/18 0356: Core Measures/Misc (07/23) Sepsis (View protocol) If YES complete Sepsis Event Note If YES complete Sepsis Event Note Attending MD Review Statement Attending Statement Attending MD Statement: examined this patient, discuss w/resident/PA/FIRE ENGINE PUMP OPERATOR, agreed w/resident/PA/FIRE ENGINE PUMP OPERATOR, reviewed images, amended to note Attending Assessment/Plan: 87 yo M with h/o CAD s/p CABG, SVT, paroxysmal Afib, COPD, vertigo/ chronic dizziness, HTN, GERD, DM, PMR on chronic steroids, is brought in from assisted living facility after a fall. Patient reports subjective fevers, inability to walk, tired, shaking chills, 'not feeling well' and cough productive of thick clear phlegm for the past 1 week. Today he was unable to walk, felt lighteaded and unsteady, when he fell backwards hitting his head. He denied LOC, headache or vision changes. He reports right lateral chest pain and mid back pain, that is not pleuritic in nature. He denies chest pain or dyspnea. Of note, he reports dark black stools for the past 1 year. Unclear when his last colonoscopy was. Vitals: Tmax 102.1, HR 50-70's, BP 125/58, sats 95% RA. Exam as above. Labs: no leukocytosis, H/H 14.2/42.7, Plt 123, Na 135, bicarb 32, glucose 131, T. Bili 3.5. UA pending. CT head/ cervical spine no acute process, moderate cerebral atrophy with chronic small vessel ischemic changes. Moderate degenerative facet joint arthropathy. CT CAP: focal left lower lobe consolidation, likely pneumonic infiltrate, scattered right posterior pleural calcifications with left posterior pleural thickening likely previous asbestosis exposure. Mild emphysema. Enlarged right thyroid lobe with small nodule and calcifications. Abdomen benign. No visible rib fractures. EKG: sinus rhythm, first degree AV block, LAD, Qtc 432. Echo (2016): EF 45-50%. Assessment and plan: 1. Fall, near syncope 2. SIRS 3. Left lower lobe pneumonia community acquired 4. Right sided lateral rib/ chest pain 5. History of CAD, HTN, SVT, COPD 6. H/o PMR on chronic steroids 7. CT s/o enlarged right thyroid lobe 8. Thrombocytopenia - chronic - Admit to General medicine - Panculture - Urine legionella and strep Ag - IV ceftriaxone and azithro - IV hydration - If hypotensive, consider stress dose steroids - Please confirm is patient continues to be on chronic steroids for PMR - PT eval for possible rehab placement - Check orthostats - Check TSH, free T4 and consider thyroid ultrasound - Please reconcile meds in AM - Diabetes management - Monitor H and H, guaiac all stools. DVT ppx Alps (thrombocytopenia). Full code.
[2018-04-24 00:55] VITALS: BP 128/56
[2018-04-24] MEDS ORDERED: CARDIZEM CD240 M1 PO (01:33)
--- NOTE | 2018-04-24 03:56 | Admission Certification ---
Admission Certification Certification Statement - As attending physician, I certify that at the time of - admission, based on clinical presentation, severity of - symptoms, need for further diagnostic testing and - therapeutic interventions, and risk of adverse outcomes - without in-hospital treatment, in my clinical assessment, - this patient requires an acute hospital stay for a minimum - of two nights or longer. I have also considered psychsocial - factors such as support system, advanced age, financial - issues, cognitive issues, and failed out-patient treatments, - past re-admission history, safety of patient, and lack of - compliance as applicable. Specific rationale supporting this admission is: Fall, SIRS, left lower lobe pneumonia.
[2018-04-24 05:49] VITALS: BP 122/54
--- NOTE | 2018-04-24 08:01 | PN- Housestaff ---
Lois CARRANZA,Cesar 04/24/18 0801: Subjective Follow-up For: Community Acquired Pneumonia Fall Subjective: Patient was seen and examined today. Patient resting comfortably in bed today. Reports only lower back pain which he states has improved. Denies any respiratory complaints or other symptoms. Review of Systems Constitutional: Reports: see HPI. Objective Last 24 Hrs of Vital Signs/I&O Vital Signs Date Time Temp Pulse Resp B/P B/P Pulse O2 O2 Flow FiO2 Mean Ox Delivery Rate 04/24 2236 98.6 71 18 130/56 92 Room Air 04/24 1454 97.4 62 20 100/50 95 Room Air 04/24 1401 Room Air 04/24 0824 73 122/54 04/24 0800 92 Room Air 04/24 0549 98.5 73 18 122/54 92 Room Air Intake & Output 04/25 0800 04/25 0000 04/24 1600 Intake Total 720 1050 Output Total 150 900 900 Balance -150 -180 150 Intake, IV 0 700 Intake, Oral 720 350 Number 0 1 Bowel Movements Output, Urine 150 900 900 Physical Exam General Appearance: Alert, Oriented X3, Cooperative, No Acute Distress Sepsis Skin Exam (color): Normal for Ethnicity HEENT: Atraumatic, PERRLA, EOMI, Mucous Membr. moist/pink Cardiovascular: Regular Rate, Normal S1, Normal S2 Lungs: Clear to Auscultation, Normal Air Movement Abdomen: Normal Bowel Sounds, Soft, No Tenderness Neurological: Normal Speech, Strength at 5/5 X4 Ext, Normal Tone, Sensation Intact, Cranial Nerves 3-12 NL Extremities: No Clubbing, No Cyanosis, No Edema, Normal Pulses, No Tenderness/ Swelling Current Medications: Current Medications Sig/Chacho Start time Last Medication Dose Route Stop Time Status Admin Acetaminophen 325 MG .STK-MED ONE 04/24 1743 DC PO 04/24 1744 Acetaminophen 325 MG Q6P PRN 04/24 0945 AC PO Acetaminophen 650 MG Q4P PRN 04/24 0945 AC 04/24 PO 2115 Albuterol Sulfate 2 PUF Q4P PRN 04/24 1400 AC 04/24 INH 1430 Aspirin Buffered 81 MG DAILY 04/24 09 AC 04/24 PO 0824 Atorvastatin Calcium 20 MG DAILY 04/24 09 AC 04/24 PO 0825 Azithromycin 500 MG DAILY 04/24 09 AC 04/24 Sodium Chloride 250 ML IV 0825 Ceftriaxone Sodium 1,000 MG DAILY 04/24 0900 AC 04/24 IV 0824 Diltiazem HCl 240 MG DAILY 04/24 0900 AC 04/24 PO 0824 Heparin Sodium 5,000 UNIT Q8 04/24 06 AC 04/24 (Porcine) SC 211 Insulin Aspart 0 TIDAC 04/24 0800 AC 04/24 SC 1147 Insulin Detemir 20 UNITS AT BEDTIME 04/24 2100 AC 04/24 SC 2114 Metoprolol Succinate 25 MG DAILY 04/24 0900 AC 04/24 PO 0824 Omeprazole 40 MG DAILY AC 04/24 0700 AC 04/24 PO 0549 Patient Medication 1 ED ONE ONE 04/24 1630 DC 04/24 Teaching ED 04/24 1631 1706 Sodium Chloride 1,000 ML Q10H 04/24 0245 DC 04/24 IV 04/24 1244 0345 Assessment/Plan Assessment: Patient is an 87-year-old male with a PMH significant for COPD, vertigo, cataracts, macular degeneration, CAD status post CABG approximately 20 years ago , HTN, HLD, GERD, BPH, anxiety, diabetes, polymyalgia rheumatica, side psoriasis who was brought into the [facility] ED by ambulance from his assisted living home after a fall with head strike. He has had a one-week history of productive cough and worsening fatigue and lightheadedness. CT ruled out any intracranial hemorrhage or traumatic injury to the head or neck. CT chest shows left lower lobe consolidation. Vital signs on admission: T 99.4 (T-max 102.1), P 70, RR 18, BP 137/71, pulse ox 94% on room air Labs: WBC 10.5, H/H 14.2/42.7, platelets 123, sodium 135, potassium 5.0, chloride 95, CO2 32, BUN 20, creatinine 0.8, glucose 131 Problem list 1. Community acquired pneumonia 2. Fall with head strike, no loss of consciousness, possible presyncope/syncope - likely secondary to pneumonia and weakness however should ruleout cardiac etiology with EKG and ECHO 3. Mild thrombocytopenia 4. Melena 5. 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 #Incidental finding of enlarged right thyroid nodule with nodule and calcification #Chronic medical problems including vertigo, COPD, macular degeneration, CAD status post CABG, HTN, HLD, GERD, BPH, anxiety, diabetes Plan - Admitted to general medicine - Continue IV ceftriaxone, IV azithromycin - Tylenol PRN for pain control - Follow up Urine strep and Legionella antigen , sputum culture, blood cultures - Outpatient workup of incidental thyroid nodule with ultrasound, follow-up thyroid function tests - Check orthostatic vital signs in a.m. - PT evaluation and treatment - Continue home medications - EKG and ECHO - Guaiac all stools - TRC/duonebs as needed Diet: Heart healthy diet DVT prophylaxis: Subcutaneous heparin, Alps CODE STATUS: Full code Problem List: 1. Community acquired pneumonia Pain Ratin Pain Location: back Pain Goal: Pain 4 or less Pain Plan: tylenol PRN Tomorrow's Labs & Rationales: axel Singer MD,Epifanio 04/24/18 1526: Attending MD Review Statement Attending Statement Attending MD Statement: examined this patient, discuss w/resident/PA/DAIRY CATTLE FARM WORKER, agreed w/resident/PA/DAIRY CATTLE FARM WORKER, reviewed EMR data (avail), discussed with nursing, discussed with case mgmt, amended to note Attending Assessment/Plan: Patient seen and examined. No issues overnight reported by nursing staff. Remains afebrile and hemodynamically stable. Resting comfortably and not in any acute distress. Reports feeling better compared to presentation. Reports that low back pain has improved significantly. Reports being to only be 4 over 10 in severity. He is not requiring oxygen supplementation. On examination lungs are clear bilaterally. We will continue current antibiotic course if he continues to do well clinically he may be transitioned to oral antibiotics tomorrow and discharged home tomorrow . 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 No further testing required at present. Check orthostatic vitals and repeat EKG. Obtain echocardiogram. Fall may be related to lethargy brought on by his infection.
[2018-04-24 14:54] VITALS: BP 100/50
[2018-04-24 22:36] VITALS: BP 130/56
[2018-04-25 06:11] VITALS: BP 130/64
--- NOTE | 2018-04-25 07:29 | PN- Housestaff ---
Lois CARRANZA,Cesar 04/25/18 0728: Subjective Follow-up For: Community Acquired Pneumonia Fall Subjective: Patient was seen and examined today. Patient reports that he is feeling fine today. Has no complaints. Patient was frustrated due to the tests that were done today. After explaining the reason behind it patient was fine. No acute events overnight. Review of Systems Constitutional: Reports: see HPI. Objective Last 24 Hrs of Vital Signs/I&O Vital Signs Date Time Temp Pulse Resp B/P B/P Pulse O2 O2 Flow FiO2 Mean Ox Delivery Rate 04/25 0611 16.0 56 16 130/64 98 Room Air 04/24 2236 98.6 71 18 130/56 92 Room Air 04/24 1454 97.4 62 20 100/50 95 Room Air 04/24 1401 Room Air 04/24 0824 73 122/54 Intake & Output 04/25 1600 04/25 0800 04/25 0000 Intake Total 120 720 Output Total 580 900 Balance -460 -180 Intake, IV 0 Intake, Oral 120 720 Number 1 0 Bowel Movements Output, Urine 580 900 Physical Exam General Appearance: Alert, Cooperative, No Acute Distress Skin: No Rashes Skin Temp/Moisture Exam: Warm/Dry Cardiovascular: Regular Rate, Normal S1, Normal S2 Lungs: Clear to Auscultation, Normal Air Movement Abdomen: Normal Bowel Sounds, Soft, No Tenderness Neurological: Normal Speech, Cranial Nerves 3-12 NL Extremities: No Clubbing, No Cyanosis, No Edema, Normal Pulses, No Tenderness/ Swelling Current Medications: Current Medications Sig/Chacho Start time Last Medication Dose Route Stop Time Status Admin Acetaminophen 325 MG .STK-MED ONE 04/24 1743 DC PO 04/24 174 Acetaminophen 325 MG Q6P PRN 04/24 0945 AC PO Acetaminophen 650 MG Q4P PRN 04/24 0945 AC 04/24 PO 2115 Albuterol Sulfate 2 PUF Q4P PRN 04/24 1400 AC 04/24 INH 1430 Aspirin Buffered 81 MG DAILY 04/24 900 AC 04/24 PO 0824 Atorvastatin Calcium 20 MG DAILY 04/24 900 AC 04/24 PO 0825 Azithromycin 500 MG DAILY 04/24 900 AC 04/24 Sodium Chloride 250 ML IV 0825 Ceftriaxone Sodium 1,000 MG DAILY 04/24 900 AC 04/24 IV 0824 Diltiazem HCl 240 MG DAILY 04/24 900 AC 04/24 PO 0824 Heparin Sodium 5,000 UNIT Q8 04/24 0600 AC 04/25 (Porcine) SC 0515 Insulin Aspart 0 TIDAC 04/24 0800 AC 04/24 SC 1147 Insulin Detemir 20 UNITS AT BEDTIME 04/24 2100 AC 04/24 DC 2114 Metoprolol Succinate 25 MG DAILY 04/24 0900 AC 04/24 PO 0824 Omeprazole 40 MG DAILY AC 04/24 0700 AC 04/25 PO 0510 Patient Medication 1 ED ONE ONE 04/24 1630 DC 04/24 Teaching ED 04/24 1631 1706 Sodium Chloride 1,000 ML Q10H 04/24 0245 DC 04/24 IV 04/24 1244 0345 Last 24 Hrs of Lab/Jc Results Last 24 Hrs of Labs/Mics: Laboratory Tests 04/25/18 0705: Sodium Pending, Potassium Pending, Chloride Pending, Carbon Dioxide Pending, Anion Gap Pending, BUN Pending, Creatinine Pending, BUN/Creatinine Ratio Pending Assessment/Plan Assessment: Patient is an 87-year-old male with a PMH significant for COPD, vertigo, cataracts, macular degeneration, CAD status post CABG approximately 20 years ago , HTN, HLD, GERD, BPH, anxiety, diabetes, polymyalgia rheumatica, side psoriasis who was brought into the [facility] ED by ambulance from his assisted living home after a fall with head strike. He has had a one-week history of productive cough and worsening fatigue and lightheadedness. CT ruled out any intracranial hemorrhage or traumatic injury to the head or neck. CT chest shows left lower lobe consolidation. Vital signs on admission: T 99.4 (T-max 102.1), P 70, RR 18, BP 137/71, pulse ox 94% on room air Labs: WBC 10.5, H/H 14.2/42.7, platelets 123, sodium 135, potassium 5.0, chloride 95, CO2 32, BUN 20, creatinine 0.8, glucose 131 Problem list 1. Community acquired pneumonia - currently covered with Ceftriaxone and Azithromycin, Urine strep and Legionella antigen negative 2. Fall with head strike, no loss of consciousness, possible presyncope/syncope - likely secondary to pneumonia and weakness however should ruleout cardiac etiology with EKG and ECHO 3. Mild thrombocytopenia 4. Melena 5. 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 6. Asymptomatic bacteruria - growing staph speciies <100,000 colonies, no symptoms 7. Orthostatic hypotension- significant drop in bp from 160s to 130s systolic from sitting to standing #Incidental finding of enlarged right thyroid nodule with nodule and calcification #Chronic medical problems including vertigo, COPD, macular degeneration, CAD status post CABG, HTN, HLD, GERD, BPH, anxiety, diabetes Plan - Admitted to general medicine - Continue IV ceftriaxone, IV azithromycin - Tylenol PRN for pain control - Follow up sputum culture, blood cultures - Outpatient workup of incidental thyroid nodule with ultrasound, follow-up thyroid function tests - Check orthostatic vital signs in a.m. - PT evaluation and treatment - Continue home medications - Repeat EKG in AM - Encourage PO hydration - ECHO - Guaiac all stools - TRC/duonebs as needed Diet: Heart healthy diet DVT prophylaxis: Subcutaneous heparin, Alps CODE STATUS: Full code Problem List: 1. Community acquired pneumonia 2. Fall Pain Ratin Pain Location: back Pain Goal: Pain 4 or less Pain Plan: tylenol PRN Tomorrow's Labs & Rationales: none Enmanuel CARRANZA,Epifanio 04/25/18 1346: Attending MD Review Statement Attending Statement Attending MD Statement: examined this patient, discuss w/resident/PA/HISTORIC INTERPRETER, agreed w/resident/PA/HISTORIC INTERPRETER, reviewed EMR data (avail), discussed with nursing, discussed with case mgmt, amended to note Attending Assessment/Plan: Patient seen and examined. Resting comfortably not in any acute distress. From a respiratory standpoint he is doing better. Denies cough or shortness of breath at present. He is now requiring oxygen supplementation. On examination he has adequate entry bilaterally with no added sounds. Urine cultures are showing staph species about 80,000 colony-forming units. He is however asymptomatic. This likely represents asymptomatic bacteriuria. Patient reports that prior to presentation he had been feeling very lethargic. He reports being in bed for several days. On the day of presentation he had gotten up to use the bathroom. While working back to his bed he reports that his leg suddenly gave way and he fell to the ground. Denies any loss of consciousness. Denies any preceding dizziness. Denies any chest pain or palpitations. EKG shows normal sinus rhythm with first-degree AV block. No ischemic changes noted. Recommendations: -Continue antibiotic therapy for community-acquired pneumonia evidenced by his symptoms and radiologic findings. -Follow-up echocardiogram as part of workup for his fall. fall may have been vasovagal mediated. Orthostatic vitals were checked this morning. While he did have a significant drop from supine to sitting position blood pressure actually improved from sitting to standing position. -Repeat EKG on orthostatic vitals in a.m. -He remains clinically stable overnight and no acute pathology noted on echocardiogram he may be discharged tomorrow on oral antibiotics to complete 7 days of treatment.
[2018-04-25 14:19] VITALS: BP 130/60
--- NOTE | 2018-04-25 17:20 | Patient Discharge Instructions ---
Acute Coronary Syndrome Inclusion Criteria At DC or during hospital stay patient has or had the following: Discharge Core Measures Meds if any: Prescribed or Continued at Discharge Meds if any: NOT Prescribed or Continued at Discharge Congestive Heart Failure Inclusion Criteria At DC or during hospital stay patient has or had the following: Discharge Core Measures Meds if any: Prescribed or Continued at Discharge Meds if any: NOT Prescribed or Continued at Discharge Cerebrovascular accident Inclusion Criteria At DC or during hospital stay patient has or had the following: CVA/TIA Diagnosis No Discharge Core Measures Meds if any: Prescribed or Continued at Discharge Meds if any: NOT Prescribed or Continued at Discharge Venous thromboembolism Discharge Core Measures - Per Current guidelines, there needs to be overlap - treatment for the first 5 days of Warfarin therapy. - If discharged on Warfarin prior to 5 days of - overlap therapy, the patient will need to be - assessed for post discharge needs including - *Post discharge parental anticoagulation - *Warfarin and/or parental anticoagulation education - *Follow up date to check INR post discharge Meds if any: Prescribed or Continued at Discharge Note: Overlap Therapy is Warfarin and Anticoagulant Meds if any: NOT Prescribed or Continued at Discharge
--- NOTE | 2018-04-25 18:29 | ECHOCARDIOGRAM REPORT ---
ANAY VILLALOBOS Age: 87 : 1930 Gender: M Exam Date: 04/25/2018 16:19 Exam Location: [address] [place] [address] Ht (in): 71 Wt (lb): 115 BSA: 1.60 BP: 130 / 64 Ordering Physician: Cesar Abreu MD Referring Physician: Des Veloz MD Technologist: Lorie Vanegas [facility] Room Number: 213 Indications: PRESYNCOPE/SYNCOPE Rhythm: Sinus Technical Quality: fair FINDINGS Left Ventricle Normal size left ventricle. Left ventricular wall thickness at upper limits of normal. Borderline normal left ventricular ejection fraction estimated at 50-55%. Right Ventricle Normal right ventricular size and function. Right Atrium Normal right atrial size. Left Atrium Mild left atrial dilatation. Mitral Valve Moderate mitral annular calcification. Mild thickening/calcification of the anterior mitral valve leaflet. Aortic Valve Diffuse thickening (sclerosis) of the aortic valve cusps without reduced excursion. Tricuspid Valve Tricuspid valve is normal in structure and function. Mild tricuspid regurgitation. Right ventricular systolic pressure estimated to be elevated at 45 mmHg. Pulmonic Valve Pulmonic valve not well visualized, grossly normal. Pericardium No pericardial effusion. Great Vessels Normal size aortic root. CONCLUSIONS Normal left ventricular systolic function with borderline concentric hypertrophy. Left atrial enlargement. Mild to moderate Pumonary hypertension. Des Veloz M.D. (Electronically Signed) Final Date: 25 April 2018 18:29 MEASUREMENTS (Male / Female) Normal Values 2D ECHO LV Diastolic Diameter PLAX 4.4 cm 4.2 - 5.9 / 3.9 - 5.3 cm LV Systolic Diameter PLAX 3.4 cm 2.1 - 4.0 cm LV Fractional Shortening PLAX 22.7 % 25 - 46 % LV Ejection Fraction 2D Teich 45.9 % IVS Diastolic Thickness 1.1 cm LVPW Diastolic Thickness 1.0 cm LV Relative Wall Thickness 0.5 RV Internal Dim ED PLAX 2.6 cm 1.9 - 3.8 cm LVOT Diameter 2.0 cm Aortic Root Diameter 3.3 cm LA Systolic Diameter LX 4.3 cm 3.0 - 4.0 / 2.7 - 3.8 cm LA Volume 53.0 cm 18 - 58 / 22 - 52 cm Ascending Aorta Diameter 3.2 cm DOPPLER AV Peak Velocity 156.0 cm/s AV Peak Gradient 9.7 mmHg AV Mean Velocity 108.0 cm/s AV Mean Gradient 5.0 mmHg AV Velocity Time Integral 42.2 cm LVOT Peak Velocity 104.0 cm/s LVOT Peak Gradient 4.3 mmHg LVOT Mean Velocity 71.6 cm/s LVOT Mean Gradient 2.0 mmHg LVOT Velocity Time Integral 24.8 cm LVOT Stroke Volume 77.9 cm AV Area Cont Eq vti 1.8 cm AV Area Cont Eq pk 2.1 cm MV Peak Velocity 137.0 cm/s MV Peak Gradient 7.5 mmHg MV Mean Velocity 78.7 cm/s MV Mean Gradient 3.0 mmHg Mitral E Point Velocity 123.0 cm/s Mitral A Point Velocity 120.0 cm/s Mitral E to A Ratio 1.0 MV PHT Velocity 136.0 cm/s MV Deceleration [place] 446.0 cm/s MV Pressure Half Time 91.5 ms MV Area PHT 2.4 cm MV Deceleration Time 165.0 ms TR Peak Velocity 311.0 cm/s TR Peak Gradient 38.7 mmHg Right Atrial Pressure 10.0 mmHg Pulmonary Artery Systolic Pressu 48.7 mmHg Right Ventricular Systolic Press 48.7 mmHg PV Peak Velocity 102.0 cm/s PV Peak Gradient 4.2 mmHg PV Mean Velocity 64.0 cm/s PV Mean Gradient 2.0 mmHg PV Velocity Time Integral 21.5 cm LV E' Lateral Velocity 7.0 cm/s Mitral E to LV E' Lateral Ratio 17.5 LV E' Septal Velocity 4.4 cm/s Mitral E to LV E' Septal Ratio 28.0
[2018-04-25 21:56] VITALS: BP 162/60
[2018-04-26 04:18] VITALS: BP 152/87
--- NOTE | 2018-04-26 07:09 | PN- Housestaff ---
Lois CARRANZA,Cesar 04/26/18 0708: Subjective Follow-up For: Community Acquired Pneumonia Fall Subjective: Patient was seen and examined today. Patient reports feeling confused this morning about where he was and thinking he was in the doctors office. Spoke to patient's neice's who states that this mild confusion is patient's baseline. Patient reports no other symptoms except for mild 2/10 back pain. No acute events overnight. Review of Systems Constitutional: Reports: see HPI. Objective Last 24 Hrs of Vital Signs/I&O Vital Signs Date Time Temp Pulse Resp B/P B/P Pulse O2 O2 Flow FiO2 Mean Ox Delivery Rate 04/26 0836 70 150/86 04/26 0800 95 Room Air Room Air 04/26 0418 97.8 69 18 152/87 96 Room Air Intake & Output 04/26 1600 04/26 0800 04/26 0000 Intake Total 240 120 Output Total 550 900 Balance -310 -780 Intake, Oral 240 120 Output, Urine 550 900 Physical Exam General Appearance: Alert, Cooperative, No Acute Distress, oriented x 2 HEENT: Atraumatic, Mucous Membr. moist/pink Other Physical Findings: Cardiovascular: Regular Rate, Normal S1, Normal S2 Lungs: Clear to Auscultation, Normal Air Movement Abdomen: Normal Bowel Sounds, Soft, No Tenderness Neurological: Normal Speech, Cranial Nerves 3-12 NL Extremities: No Clubbing, No Cyanosis, No Edema, Normal Pulses, No Tenderness/ Swelling Assessment/Plan Assessment: Patient is an 87-year-old male with a PMH significant for COPD, vertigo, cataracts, macular degeneration, CAD status post CABG approximately 20 years ago , HTN, HLD, GERD, BPH, anxiety, diabetes, polymyalgia rheumatica, side psoriasis who was brought into the [facility] ED by ambulance from his assisted living home after a fall with head strike. He has had a one-week history of productive cough and worsening fatigue and lightheadedness. CT ruled out any intracranial hemorrhage or traumatic injury to the head or neck. CT chest shows left lower lobe consolidation. Vital signs on admission: T 99.4 (T-max 102.1), P 70, RR 18, BP 137/71, pulse ox 94% on room air Labs: WBC 10.5, H/H 14.2/42.7, platelets 123, sodium 135, potassium 5.0, chloride 95, CO2 32, BUN 20, creatinine 0.8, glucose 131 Problem list 1. Community acquired pneumonia - currently covered with Ceftriaxone and Azithromycin, Urine strep and Legionella antigen negative 2. Fall with head strike, no loss of consciousness, possible presyncope/syncope - likely secondary to pneumonia and weakness however should ruleout cardiac etiology with EKG and ECHO 3. Mild thrombocytopenia 4. Melena 5. 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 6. Asymptomatic bacteruria - growing staph speciies <100,000 colonies, no symptoms 7. Orthostatic hypotension- significant drop in bp from 160s to 130s systolic from sitting to standing #Incidental finding of enlarged right thyroid nodule with nodule and calcification #Chronic medical problems including vertigo, COPD, macular degeneration, CAD status post CABG, HTN, HLD, GERD, BPH, anxiety, diabetes Plan - Discharge to assisted living facility. Cleared by PT. - Continue antibiotics - with PO Keflex - Outpatient workup of incidental thyroid nodule with ultrasound, follow-up thyroid function tests - Check orthostatic vital signs in a.m. - PT evaluation and treatment - Continue home medications - Encourage PO hydration - ECHO shows nl LVEF, concentric hypertrophy, LA enlargement and pulm htn - EKG shows no significant pathology - Guaiac all stools - TRC/duonebs as needed Diet: Heart healthy diet DVT prophylaxis: Subcutaneous heparin, Alps CODE STATUS: Full code Problem List: 1. Community acquired pneumonia 2. Fall 3. Thyroid nodule Pain Ratin Pain Location: back Pain Goal: Pain 4 or less Pain Plan: tylenol PRN Tomorrow's Labs & Rationales: none - stable for discharge today Epifanio Sinegr MD 04/26/18 1136: Attending MD Review Statement Attending Statement Attending MD Statement: examined this patient, discuss w/resident/PA/FLOOR COVERING LAYER, agreed w/resident/PA/FLOOR COVERING LAYER, reviewed EMR data (avail), discussed with nursing, discussed with case mgmt, amended to note Attending Assessment/Plan: Patient seen and examined. Resting comfortably not in any acute distress. No issues overnight reported by nursing staff. This morning he appears mildly confused but he is easily reoriented. According to the family this is baseline for the patient. He is afebrile. He is hemodynamically stable. He is not requiring oxygen supplementation. On examination lungs are clear to auscultation bilaterally. He has responded well to antibiotic therapy for his community acquired pneumonia. He is being discharged on oral antibiotics to complete 7 days of treatment. EKG yesterday showed normal sinus rhythm. No ischemic changes. Echocardiogram shows no significant valvular abnormalities within normal ejection fraction. He is medically stable to be discharged home today. There is report that patient had melanotic stool on presentation however his hemoglobin level has been stable during the hospitalization and stool guaiac is negative. Currently there is no evidence of any gastrointestinal bleeding.
[2018-04-26] MEDS ORDERED: KEFLEX500 M1 PO ×2 (08:20→09:48)
[2018-04-26 08:36] VITALS: BP 150/86
--- NOTE | 2018-04-26 23:00 | Discharge Summary ---
Visit Information Visit Dates Admission Date: 04/23/18 Discharge Date: 04/26/18 Hospital Course Course Attending Physician: Epifanio Singer MD Primary Care Physician: Carl Chowdary MD Hospital Course: Patient is an 87-year-old male with a PMH significant for COPD, vertigo, cataracts, macular degeneration, CAD status post CABG approximately 20 years ago , HTN, HLD, GERD, BPH, anxiety, diabetes, polymyalgia rheumatica, side psoriasis who was brought into the [facility] ED by ambulance from his assisted living home after a fall with head strike. He has had a one-week history of productive cough and worsening fatigue and lightheadedness. CT ruled out any intracranial hemorrhage or traumatic injury to the head or neck. CT chest shows left lower lobe consolidation. Vital signs on admission: T 99.4 (T-max 102.1), P 70, RR 18, BP 137/71, pulse ox 94% on room air Labs: WBC 10.5, H/H 14.2/42.7, platelets 123, sodium 135, potassium 5.0, chloride 95, CO2 32, BUN 20, creatinine 0.8, glucose 131 Patient was stable for admission to the general medical floor for management of the following: Problem list 1. Community acquired pneumonia 2. Fall with head strike 3. Mild thrombocytopenia 4. Hyperbilirubinemia 6. Asymptomatic bacteruria - growing staph speciies <100,000 colonies, no symptoms 7. Orthostatic hypotension 8. Incidental finding of enlarged right thyroid nodule with calcification 9. Chronic medical problems including vertigo, COPD, macular degeneration, CAD status post CABG, HTN, HLD, GERD, BPH, anxiety, diabetes Patient presented to the hospital after falling and hitting his head, reportedly due to significant weakness and possibly secondary to vasovagal response after using bathroom. Patient was found to have LLL penumonia and started on IV Ceftriaxone and IV Azithromycin for community acquired pneumonia. Due to possible albeit low suspicion of cardiac etiology, an EKG and ECHO were done. EKG showed normal sinus rhythm with no significant findings. ECHO showed a normal LVEF with mild concentric hypertrophy, left arterial enlargement and pulmonary htn. Patient was noted to have isolated indirect hyperbilirubinemia likely due to genetic defect such as [place] which is most commonly seen. Patient during admission had asymptomatic bacterruia, orthostatic hypotension which resolved and was found to have incdiental enlarged right thyroid calcified nodule. Patient was sent home on keflex. Further investiagion of thyroid nodule deferred for outpatient evaluation and monitoring. Remainder of patient's home medications are unchanged. Patient was evaluated by PT prior to discharge and was safe to return to the assisted living facility. Allergies: Coded Allergies: NO KNOWN ALLERGIES (11/13/13) Pertinent Lab Results: SERVICE DATE: 04/23/18 EXAM TYPE: CAT - CT CERV SPINE WO IV CONTRAST; CT HEAD WO IV CONTRAST EXAMINATION: CT HEAD AND CT CERVICAL SPINE WITHOUT CONTRAST. CLINICAL INFORMATION: Fall with head strike. No pain. Possible LOC. COMPARISON: None TECHNIQUE: 5 mm thin axial and reformatted 2.5 mm thin coronal images of brain were obtained without contrast. Subsequently 2.5 minutes and axial and reformatted sagittal coronal images of brain were obtained. FINDINGS: Brain: There is no acute intra-axial, extra-axial bleed, collection, masses or midline shift. There is no acute infarct in evolution. There is diffuse periventricular hypodensity without mass effect. The lateral ventricles are enlarged and so are in the cortical sulci. The paranasal sinuses are well aerated. The mastoid sinuses are well-aerated. There is no calvarial abnormality. Cervical spine: There is normal cervical lordosis. The vertebral heights, alignment is normal. There is a nondisplaced vertical lucency traversing the posterior C2 vertebral body likely nutrient foramina. There is no fracture seen involving the C2 or the C1 vertebra. There is no fracture involving any of the cervical vertebra. There is a broad anterior bridging osteophyte C3 and C4 vertebra. There is bilateral facet joint arthropathy C2-C3, C3-C4, C4-C5 and C5-C6 disc levels greater on the left than right. The prevertebral and paravertebral soft tissues are normal. IMPRESSION: No acute intracranial process seen. Moderate cerebral atrophy with chronic small vessel ischemic changes. There is no acute fracture or dislocation cervical spine. Moderate degenerative facet joint arthropathy left C2-3 through C5-C6 disc levels and minimal on the right side. SERVICE DATE: 04/23/18 EXAM TYPE: CAT - CT ABD & PELVIS W IV CONTRAST; CT CHEST W IV CONTRAST EXAMINATION: CT CHEST, ABDOMEN AND PELVIS WITH IV CONTRAST CLINICAL INFORMATION: Right-sided chest wall and flank pain. History of fall. COMPARISON: Chest x-ray 02/28/2018. TECHNIQUE: 5 mm thin axial and reformatted 3 mm thin sagittal and coronal images of chest, abdomen and pelvis were obtained following IV 100 mL Optiray 320. DLP 436. FINDINGS: CHEST: There is diffuse emphysematous changes of both lungs without acute pneumonic consolidation or contusion. There is left lower lobe posterior basal segment focal consolidation with strand-like atelectasis. There are surgical sutures in the right lung base from previous intervention. There is no pleural effusion. There is minimal left posterior pleural thickening. Right lower lobe pleural calcification is noted. The heart size is normal. Coronary artery calcifications. No pulmonary or effusion seen. No abnormal mediastinal or hilar lymph nodes seen. The tracheal-bronchial tree is widely patent. A right thyroid enlargement with a small nodule and calcification in midpole noted. There are benign lymph nodes in the mediastinum. ABDOMEN AND PELVIS: The liver is normal size, shape and position. It has normal attenuation. No intrahepatic ductal dilatation or focal lesion seen. The gallbladder has been surgically removed. Visualized spleen, pancreas and bilateral adrenal glands are unremarkable. Both kidneys are normal size, shape and position. No radiopaque calculi or hydronephrosis seen. There is a focal 1.1 cm lesion upper pole cortex right kidney, likely cysts. The abdominal aorta is normal caliber with minimal thrombus along the right abdominal wall midabdomen. There is atherosclerotic aortic calcification. No retroperitoneal lymph nodes or mass seen. Scattered stool and gas is seen in the colon without significant distention. The small bowel loops are normal caliber. No free air or free fluid seen. Imaging through the pelvis reveals a normal prostate gland. The bladder is distended and appears unremarkable. Abdominal wall appears unremarkable. Bone windows reveal degenerative disc changes L5-S1 disc levels with mild dorsal and lumbar spondylosis. No lytic or sclerotic process seen. There are median sternotomy sutures from previous intervention. No visible rib fractures seen. IMPRESSION: Focal left lower lobe consolidation. Likely pneumonic infiltrate. Scattered right posterior pleural calcifications are present with minimal left posterior pleural thickening, likely previous asbestosis exposure.. Mild emphysema. Enlarged right thyroid lobe with a small nodule and calcification. Correlate with ultrasound. No acute process seen in the abdomen. The gallbladder has been surgically removed. There is likely cyst upper pole right kidney. SERVICE DATE: 04/24/18 EXAM TYPE: CARD - ECHOCARDIOGRAM FINDINGS Left Ventricle Normal size left ventricle. Left ventricular wall thickness at upper limits of normal. Borderline normal left ventricular ejection fraction estimated at 50-55%. Right Ventricle Normal right ventricular size and function. Right Atrium Normal right atrial size. Left Atrium Mild left atrial dilatation. Mitral Valve Moderate mitral annular calcification. Mild thickening/calcification of the anterior mitral valve leaflet. Aortic Valve Diffuse thickening (sclerosis) of the aortic valve cusps without reduced excursion. Tricuspid Valve Tricuspid valve is normal in structure and function. Mild tricuspid regurgitation. Right ventricular systolic pressure estimated to be elevated at 45 mmHg. Pulmonic Valve Pulmonic valve not well visualized, grossly normal. Pericardium No pericardial effusion. Great Vessels Normal size aortic root. CONCLUSIONS Normal left ventricular systolic function with borderline concentric hypertrophy. Left atrial enlargement. Mild to moderate Pumonary hypertension. Des Veloz M.D. (Electronically Signed) Final Date: 25 April 2018 18:29 MEASUREMENTS (Male / Female) Normal Values 2D ECHO LV Diastolic Diameter PLAX 4.4 cm 4.2 - 5.9 / 3.9 - 5.3 cm LV Systolic Diameter PLAX 3.4 cm 2.1 - 4.0 cm LV Fractional Shortening PLAX 22.7 % 25 - 46 % LV Ejection Fraction 2D Teich 45.9 % IVS Diastolic Thickness 1.1 cm LVPW Diastolic Thickness 1.0 cm LV Relative Wall Thickness 0.5 RV Internal Dim ED PLAX 2.6 cm 1.9 - 3.8 cm LVOT Diameter 2.0 cm Aortic Root Diameter 3.3 cm LA Systolic Diameter LX 4.3 cm 3.0 - 4.0 / 2.7 - 3.8 cm LA Volume 53.0 cm 18 - 58 / 22 - 52 cm Ascending Aorta Diameter 3.2 cm DOPPLER AV Peak Velocity 156.0 cm/s AV Peak Gradient 9.7 mmHg AV Mean Velocity 108.0 cm/s AV Mean Gradient 5.0 mmHg AV Velocity Time Integral 42.2 cm LVOT Peak Velocity 104.0 cm/s LVOT Peak Gradient 4.3 mmHg LVOT Mean Velocity 71.6 cm/s LVOT Mean Gradient 2.0 mmHg LVOT Velocity Time Integral 24.8 cm LVOT Stroke Volume 77.9 cm AV Area Cont Eq vti 1.8 cm AV Area Cont Eq pk 2.1 cm MV Peak Velocity 137.0 cm/s MV Peak Gradient 7.5 mmHg MV Mean Velocity 78.7 cm/s MV Mean Gradient 3.0 mmHg Mitral E Point Velocity 123.0 cm/s Mitral A Point Velocity 120.0 cm/s Mitral E to A Ratio 1.0 MV PHT Velocity 136.0 cm/s MV Deceleration [place] 446.0 cm/s MV Pressure Half Time 91.5 ms MV Area PHT 2.4 cm MV Deceleration Time 165.0 ms TR Peak Velocity 311.0 cm/s TR Peak Gradient 38.7 mmHg Right Atrial Pressure 10.0 mmHg Pulmonary Artery Systolic Pressu 48.7 mmHg Right Ventricular Systolic Press 48.7 mmHg PV Peak Velocity 102.0 cm/s PV Peak Gradient 4.2 mmHg PV Mean Velocity 64.0 cm/s PV Mean Gradient 2.0 mmHg PV Velocity Time Integral 21.5 cm LV E' Lateral Velocity 7.0 cm/s Mitral E to LV E' Lateral Ratio 17.5 LV E' Septal Velocity 4.4 cm/s Mitral E to LV E' Septal Ratio 28.0 Disposition Summary Disposition Principal Diagnosis: Community Acquired Pneumonia Additional Diagnosis: Fall 2/2 weakness and vasovagal syncope Discharge Disposition: home health services Discharge Instructions General Discharge Information Code Status: Full Code Patient's Diet: Diabetic diet Patient's Activity: Rolling walker, self-limited Follow-Up Instructions/Appts: Take medications as prescribed Follow up with your pcp within 1 week of discharge Further follow up and evaluation of thyroid nodule Medications at Discharge Discharge Medications: Continue taking these medications: Insulin Glargine,Hum.rec.anlog (Lantus Solostar) 100 UNIT/ML (3 ML) INSULN.PEN 20 Unit Inject into fatty tissue Every night Comments: Last Taken: 04/25/18 Time: 8:30 PM Metoprolol Succinate (Metoprolol Succinate) 25 MG TAB 1 Tablet ORAL DAILY Comments: Last Taken: 04/26/18 Time: 8:30 AM Omeprazole (Omeprazole) 40 MG CAPSULE.DR 1 Capsule ORAL DAILY Comments: Last Taken: 04/26/18 Time: 5:30 AM Tamsulosin HCl (Flomax) 0.4 MG CAP.ER.24H 1 Capsule ORAL Every night Comments: NOT GIVEN IN HOSPITAL Aspirin (Ecotrin*) 81 MG TABLET.DR 1 Tablet ORAL DAILY Comments: Last Taken: 04/26/18 Time: 8:30 AM Atorvastatin Calcium (Lipitor) 20 MG TABLET 1 Tablet ORAL DAILY Qty = 30 Comments: Last Taken: 04/26/18 Time: 8:30 AM Losartan Potassium (Cozaar) 25 MG TABLET 1 Tablet ORAL DAILY Qty = 30 Comments: NOT GIVEN IN HOSPITAL Meclizine HCl (Meclizine HCl) 12.5 MG TABLET 2 Tablet ORAL EVERY 8 HOURS NEEDED as needed for DIZZINESS Comments: NOT GIVEN IN HOSPITAL Fluticasone/Umeclidin/Vilanter (Trelegy Ellipta 100-62.5-25) 100-62.5 BLST.W.DEV 1 PUFF ORAL DAILY Comments: NOT GIVEN IN HOSPITAL Albuterol Sulfate (Proair Hfa) 90 MCG HFA.AER.AD 1-2 PUFF Inhale through mouth EVERY 4 HOURS NEEDED as needed for SHORTNESS OF BREATH Comments: Last Taken: 04/24/18 Time: 2:30 PM Diltiazem HCl (Cardizem Cd) 240 MG CAP.ER.24H 1 Capsule ORAL DAILY Qty = 85 Comments: Last Taken: 04/26/18 Time: 8:30 AM Start taking the following new medications: Cephalexin (Keflex) 500 MG CAPSULE 1 Capsule ORAL TWICE DAILY Qty = 8 No Refills Instructions: PLEASE COMPLETE THE FULL COURSE OF ANTIBIOTICS PRESCRIBED. Comments: NOT GIVEN IN HOSPITAL Copies To: Epi CARRANZA,Carl Hudson
== END 2018-04-26 11:03 | disposition home health service (06) | DRG 195 ==
LOC: ERH 16:56 → 2NB 23:03 → ERHI 23:03 → ENRESERV 04-24 00:04 → CANRESERV 04-24 00:04 → ENRESERV 04-24 00:19 → 2NB 04-24 00:44 → ENPENDDIS 04-26 10:07 → ENTRNSPT 04-26 10:52 → EDTRNSPTSTS 04-26 10:56 → EDTRNSPT 04-26 10:56 → 2NB 04-26 11:03 → CMPTRNSPT 04-26 11:44
PROVIDERS: Student in an Organized Health Care Education/Training Program
DX: J18.9 Pneumonia, unspecified organism (principal); D69.6 Thrombocytopenia, unspecified; R26.81 Unsteadiness on feet; E80.4 Gilbert syndrome; Z95.1 Presence of aortocoronary bypass graft; E11.9 Type 2 diabetes mellitus without complications; E80.6 Other disorders of bilirubin metabolism; R53.83 Other fatigue; R42 Dizziness and giddiness; J44.9 Chronic obstructive pulmonary disease, unspecified; I25.10 Atherosclerotic heart disease of native coronary artery without angina pectoris; Z98.61 Coronary angioplasty status; K21.9 Gastro-esophageal reflux disease without esophagitis; F41.9 Anxiety disorder, unspecified; N40.0 Benign prostatic hyperplasia without lower urinary tract symptoms; M35.3 Polymyalgia rheumatica; H26.9 Unspecified cataract; H35.30 Unspecified macular degeneration; H91.90 Unspecified hearing loss, unspecified ear; R91.8 Other nonspecific abnormal finding of lung field; Z90.49 Acquired absence of other specified parts of digestive tract; W18.30XA Fall on same level, unspecified, initial encounter; Y92.002 Bathroom of unspecified non-institutional (private) residence as the place of occurrence of the external cause; I95.1 Orthostatic hypotension; B95.8 Unspecified staphylococcus as the cause of diseases classified elsewhere
CPT/HCPCS: 2NBP; ERO; 36592; 74177; 81001; 82436; 87040; 87070; 87086; 87449; 87450; 93005; 93010; 93306; 97116-GO; 97161-GP; J0456; J0696; J1644; J1885; J3490; J7040

== ENCOUNTER 2018-07-05 14:33 | Emergency (ER) | payer OTHER, MEDICARE ==
[~2018-07-05] VITALS: Ht 177.8 cm; Wt 73.0 kg
[~2018-07-05 14:33] MED LIST changes: +CARDIZEM CD240 M1 PO; +KEFLEX500 M1 PO
[2018-07-05] MEDS ORDERED: COLACE100 M1 PO (14:37)
[2018-07-05] MEDS ORDERED: PRESERVISION A1 EAC1 PO (14:39)
[2018-07-05] MEDS ORDERED: VITAMIN D32000 UNI1 PO (14:39)
[2018-07-05] MEDS ORDERED: BREO ELLIPTA 11 EACH PO (14:40)
--- NOTE | 2018-07-05 15:39 | ED DYSPNEA/ASTHMA COMPLAINT ---
History of Present Illness General Chief Complaint: Dizziness Stated Complaint: BIBA DIZZY Source: patient Exam Limitations: no limitations Vital Signs & Intake/Output Vital Signs & Intake/Output Vital Signs Date Time Temp Pulse Resp B/P B/P Pulse O2 O2 Flow FiO2 Mean Ox Delivery Rate 07/05 1930 98.7 64 18 136/63 99 Nasal 2.0L Cannula 07/05 1730 97.8 60 18 145/67 100 Nasal 2.0L Cannula 07/05 1501 100 Room Air 07/05 1453 97.9 64 18 156/70 100 Room Air Allergies Coded Allergies: NO KNOWN ALLERGIES (11/13/13) Reconcile Medications Albuterol Sulfate (Proair Hfa) 90 MCG HFA.AER.AD 1-2 PUFF INH Q4 HRS NEEDED PRN SHORTNESS OF BREATH (Reported) Aspirin (Ecotrin*) 81 MG TABLET.DR 1 TAB PO DAILY HEART HEALTH (Reported) Atorvastatin Calcium (Lipitor) 20 MG TABLET 1 TAB PO DAILY heart Cholecalciferol (Vitamin D3) (Vitamin D3) 2,000 UNIT TABLET 1 TAB PO DAILY VITAMIN SUPPORT (Reported) Diltiazem HCl (Cardizem Cd) 240 MG CAP.ER.24H 1 CAP PO DAILY HEART HEALTH ( Reported) Docusate Sodium (Colace) 100 MG CAPSULE 1 CAP PO BID CONSTIPATION (Reported) Fluticasone/Umeclidin/Vilanter (Trelegy Ellipta 100-62.5-25) 100-62.5 BLST.W.DEV 1 PUFF PO DAILY BREATHING PROBLEMS (Reported) Insulin Glargine,Hum.rec.anlog (Lantus Solostar) 100 UNIT/ML (3 ML) INSULN.PEN 15 UNIT SC QPM DIABETES (Reported) Meclizine HCl 12.5 MG TABLET 2 TAB PO Q8P PRN DIZZINESS (Reported) Metoprolol Succinate 25 MG TAB 1 TAB PO DAILY BP (Reported) Tamsulosin HCl (Flomax) 0.4 MG CAP.ER.24H 1 CAP PO QPM URINARY (Reported) Vit C/E/Zn/Coppr/Lutein/Zeaxan (Preservision Areds 2 Softgel) 250-200-40 CAPSULE 1 CAP PO BID EYE (Reported) Triage Note: 87 YEAR OLD MALE TO ER VIA AMBULANCE FROM LOCAL [facility] FOR COMPLAINTS OF COUGH AND DIZZINESS FOR THE PAST WEEK, PTS VISITING NURSE CAME OUT TO CHANGE DRESSINGS TO HIS WOUND TO MID UPPER BACK AND RLE WHERE HE HAD SKIN CANCER REMOVED, DRESSINGS IN PLACE AT THIS TIME . PT WAS NOTED TO BE ORTHOSTATIC BY VISITING NURSE. ON ARRIVAL PT ALERT AND ORIENTED, SPEECH CLEAR, NOTED WITH LOOSE COUGH, PT WAS ABLE TO COUGH UP THICK YELLOW TINGED SPUTUM, O2 SAT 100 % ON RA, PT ALSO STATES THAT HE HAS A HISTORY OF VERTIGO AND HAS BEEN FEELING A LITTLE DIZZY, PT NOTED TO BE ORTHOSTATIC, IV PLACED AND IV FLUIDS INFUSING. PT IS IDDM AND FS 179 AT THIS TIME. Triage Nurses Notes Reviewed? yes HPI: Patient presents for the possibility of pneumonia. Patient states that he has had a cough productive of yellow phlegm for about one week. He also felt quite dizzy and weak today prompting his visiting nurse to recommend an emergency department evaluation. Patient states his symptoms have been intermittent since onset and nothing seems to make him feel better. He denies any associated dyspnea or chest pain fever or cold symptoms. Past History Travel History Traveled to [place] past 21 day No Medical History Any Pertinent Medical History? see below for history Neurological: dizziness, vertigo EENT: cataracts, hearing loss, macular degeneration, sinusitis Cardiovascular: CAD, hypertension, hyperlipidemia, CARDIAC BYPASS Respiratory: bronchitis, COPD, PULMONARY NODULES Gastrointestinal: GERD Hepatic: NONE Renal: benign prost hyperplasia Musculoskeletal: POLYMYALGIA RHUEMATICA Psychiatric: anxiety Endocrine: diabetes Blood Disorders: NONE Cancer(s): SKIN CANCER [employer]/Reproductive: NONE History of MRSA: Yes History of VRE: No History of CDIFF: No Surgical History Surgical History: CABG, cholecystectomy, INGUINAL HERNIA REPAIR R LUNG MASS REMOVED-NONCA Psychosocial History Who do you live with Spouse Services at Home Home Health Aide, Nursing What is your primary language Bel[place]an Tobacco Use: Never used ETOH Use: denies use Illicit Drug Use: denies illicit drug use Family History Family History, If Any: MOTHER (pancreatic cancer). SISTER (stomach cancer). FATHER (heart disease). Hx Contributory? No Review of Systems Review of Systems Constitutional: Reports: no symptoms. EENTM: Reports: no symptoms. Respiratory: Reports: see HPI. Cardiovascular: Reports: no symptoms. GI: Reports: no symptoms. Genitourinary: Reports: no symptoms. Musculoskeletal: Reports: no symptoms. Skin: Reports: no symptoms. Neurological/Psychological: Reports: no symptoms. Hematologic/Endocrine: Reports: no symptoms. Immunologic/Allergic: Reports: no symptoms. All Other Systems: Reviewed and Negative Physical Exam Physical Exam Respiratory: see below Comments: Gen.: Well-nourished, well-developed, no acute respiratory distress. Head: Normocephalic, atraumatic. Eyes: Normal inspection bilaterally Ears: Normal inspection bilaterally Nose: Normal inspection Throat/mouth : Moist mucosa Neck: Supple, full range of motion, no goiter Heart: Regular rate and rhythm, no murmurs rubs or gallops Lungs: Clear to auscultation bilaterally with normal air entry Chest: Nontender Back: Normal range of motion Abdomen: Soft, nontender, nondistended, normal bowel sounds Extremities: Normal range of motion grossly, equal radial pulses, no cyanosis clubbing or edema Neurologic: Cranial nerves grossly intact, speech is clear Skin: warm and dry Psychiatric: Calm, cooperative, no apparent delusions or hallucinations Core Measures ACS in differential dx? No CVA/TIA Diagnosis No Sepsis Present: No Sepsis Focused Exam Completed? No Progress Differential Diagnosis: bronchitis, CHF, COPD, pneumonia, pneumothorax Plan of Care: Orders Procedure Date/time Status Add-on Test (ER Only) 07/05 1602 Active STREP PNEUMO URINARY ANTIGEN 07/05 1602 Complete LOWER RESPIRATORY CULTURE 07/05 1602 Active CBC WITHOUT DIFFERENTIAL 07/05 1602 Complete BASIC METABOLIC PANEL 07/05 1602 Complete EKG 07/05 1436 Active Current Medications Sig/Chacho Start time Last Medication Dose Stop Time Status Admin Azithromycin 500 MG ONCE ONE 07/05 2015 AC (Zithromax) 07/05 2016 Sodium Chloride 1,000 ML ONCE ONE 07/05 1615 AC 07/05 (Normal Saline 0.9%) 07/05 2254 1500 Laboratory Tests 07/05/18 1707: Anion Gap 6, Estimated GFR > 60, BUN/Creatinine Ratio 22.5, Glucose 133 H, Calcium 8.9, CBC w Diff NO MAN DIFF REQ, RBC 4.14 L, MCV 89.1, MCH 30.7, MCHC 34.4, RDW 14.3, MPV 8.2, Gran % 69.6, Lymphocytes % 21.3, Monocytes % 7.2, Eosinophils % 1.5, Basophils % 0.4, Absolute Granulocytes 4.3, Absolute Lymphocytes 1.3, Absolute Monocytes 0.4, Absolute Eosinophils 0.1, Absolute Basophils 0 Microbiology 07/05 1730 URINE ROUT: Streptococcus pneumoniae Antigen (M - COMP 07/05 1602 LOWER RESP: Respiratory Culture - ORD 07/05 1602 LOWER RESP: Gram Stain - ORD Diagnostic Imaging: Discussed w/RAD: Radiology Read. CXR Impression: PATIENT: JOSE VILLALOBOS PRESENT AGE: 87 PATIENT ACCOUNT NO: [id number] : [birth year] LOCATION: ER ORDERING PHYSICIAN: Wilfredo Reyes MD SERVICE DATE: 07/05/18 EXAM TYPE: RAD - XRY-CHEST XRAY, TWO VIEWS EXAMINATION: XR CHEST CLINICAL INFORMATION: Productive cough. Assess for pneumonia. COMPARISON: Chest x-ray 06/30/2018. CT scan of the chest 04/23/2018. TECHNIQUE: Frontal and lateral views of the chest were obtained. FINDINGS: The lung mayo are hyperexpanded bilaterally. There are hazy opacities at the left base and in the right midzone laterally. These are not significantly changed compared to the prior study. There is linear opacity at the right base, consistent with atelectasis. The cardiac silhouette is mildly prominent but stable. There there is unfolding and calcification of the aortic arch. Is blunting of the bilateral costophrenic angles, demonstrated on prior imaging. The study redemonstrates surgical clips along the lower right lung. 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 There are no acute osseous findings. Bone mineralization is diffusely decreased. Bone density study 2015 described osteoporosis. There are multilevel spondylitic changes in the spine. There are sequelae of multiple healed rib fractures in the right lateral chest. IMPRESSION: 1. There are no areas of acute consolidation. There are hazy opacities at the left base and in the right midzone, demonstrated on prior imaging. 2. The cardiac silhouette is prominent but stable. DICTATED BY: Omar Morley MD DATE/TIME DICTATED:07/05/181651 BUYER ASSISTANT:LORNA DATE/TIME TRANSCRIBED:07/05/181651 CONFIDENTIAL, DO NOT COPY WITHOUT APPROPRIATE AUTHORIZATION. <Electronically signed in Other Vendor System> SIGNED BY: Omar Morley MD 07/05/18 1702 Initial ED EKG: NSR, rate (61), ivcd Prior EKG: unchanged Comments: 07/05/2018 8:02:24 PM I have updated Jose on test results. He feels comfortable returning home given the absence of a pneumonia on his evaluation. He lives in assisted living with his . I suspect purulent bronchitis and will treat him with azithromycin. Departure Departure Disposition: HOME OR SELF CARE Condition: Stable Clinical Impression Primary Impression: Purulent bronchitis Referrals: Epi CARRANZA,Carl Hudson Additional Instructions: Azithromycin as prescribed. No exertion. Follow-up with your primary care physician in one week if not improving. Return immediately if any concerns or sudden worsening. Please note that there might be incidental findings in your evaluation that are unrelated to the current emergency department visit. Please notify your primary care doctor about this emergency department visit in order to obtain and review all of the testing performed so that these incidental findings can be monitored as needed. If you had an x-ray performed, please understand that some fractures or other findings may not be seen on the initial set of x-rays. If your symptoms persist you might need a repeat set of x-rays to check for such a fracture. If you had a laceration evaluated, please understand that foreign bodies such as glass or wood may not be visible to the naked eye or on plain x-rays. If the wound becomes red, swollen, increasingly more painful or if there is any drainage from the wound, please have it reevaluated by a physician for the possibility of a retained foreign body. If you're unable to follow up as outlined in the discharge instructions please return to the emergency department. Thank you for choosing the [facility] Emergency Department for your care. It was a pleasure to serve you today. Wilfredo Reyes M.D. [facility] Departure Forms: Customer Survey General Discharge Information Prescriptions: Current Visit Scripts Azithromycin (Zithromax) 1 DP PO AD #6 TAB 2 the first day followed by 1 for days 2-5 Critical Care Note Critical Care Note Critical Care Time: non-applicable
--- NOTE | 2018-07-05 17:02 | RADIOLOGY REPORT ---
EXAMINATION: XR CHEST CLINICAL INFORMATION: Productive cough. Assess for pneumonia. COMPARISON: Chest x-ray 06/30/2018. CT scan of the chest 04/23/2018. TECHNIQUE: Frontal and lateral views of the chest were obtained. FINDINGS: The lung mayo are hyperexpanded bilaterally. There are hazy opacities at the left base and in the right midzone laterally. These are not significantly changed compared to the prior study. There is linear opacity at the right base, consistent with atelectasis. The cardiac silhouette is mildly prominent but stable. There there is unfolding and calcification of the aortic arch. Is blunting of the bilateral costophrenic angles, demonstrated on prior imaging. The study redemonstrates surgical clips along the lower right lung. 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 There are no acute osseous findings. Bone mineralization is diffusely decreased. Bone density study 03/09/2016 described osteoporosis. There are multilevel spondylitic changes in the spine. There are sequelae of multiple healed rib fractures in the right lateral chest. IMPRESSION: 1. There are no areas of acute consolidation. There are hazy opacities at the left base and in the right midzone, demonstrated on prior imaging. 2. The cardiac silhouette is prominent but stable.
[2018-07-05 17:29] LABS: ABSOLUTE BASOPHIL COUNT 0 /CUMM (0.0-0.2); ABSOLUTE EOSINOPHIL COUNT 0.1 /CUMM (0.0-0.7); ABSOLUTE GRANULOCYTE CT 4.3 /CUMM (1.4-6.5); ABSOLUTE LYMPH COUNT 1.3 /CUMM (1.2-3.4); ABSOLUTE MONOCYTE COUNT 0.4 /CUMM (0.10-0.60); BASOPHIL % 0.4 % (0.0-2.0); EOSINOPHIL % 1.5 % (0-5); GRANULOCYTE % 69.6 % (42.2-75.2); HEMATOCRIT 36.9 % (42-52); MEAN CORPUSCULAR HGB 30.7 PG (27.0-31.0); MEAN CORPUSCULAR HGB CONC 34.4 G/DL (33.0-37.0); MEAN CORPUSCULAR VOLUME 89.1 FL (80.0-94.0); MEAN PLATELET VOLUME 8.2 FL (7.4-10.4); PLATELET COUNT 133 /CUMM (130-400); RBC DISTRIBUTION WIDTH 14.3 % (11.5-14.5); RED BLOOD CELL CT 4.14 /CUMM (4.70-6.10); WHITE BLOOD CELL COUNT 6.2 /CUMM (4.8-10.8)
[2018-07-05 19:30] VITALS: BP 136/63
[2018-07-05] MEDS ORDERED: ZITHROMAX250 M2 PO (20:06)
== END 2018-07-05 21:37 ==
LOC: ERH 14:33
PROVIDERS: Emergency Medicine
DX: J41.1 Mucopurulent chronic bronchitis (principal); E11.9 Type 2 diabetes mellitus without complications; Z79.84 Long term (current) use of oral hypoglycemic drugs; I10 Essential (primary) hypertension; I25.10 Atherosclerotic heart disease of native coronary artery without angina pectoris; E78.5 Hyperlipidemia, unspecified; J44.9 Chronic obstructive pulmonary disease, unspecified
CPT/HCPCS: 71046; 87070; 87450; 93005; 93010; J0456